=== PATIENT | female | born 1965 | race Caucasian/White ===

== ENCOUNTER 2016-04-15 12:20 | Emergency (ER) | payer OTHER ==
--- NOTE | 2016-04-15 14:49 | ED NURSING NOTES ---
Clinical Report - Nurses [facility] [address] [place] [address] 04/15/2016 12:20 Patient: MARY SCHMIDT TRIAGE Triage time 13:21. Acuity: LEVEL 3. Chief Complaint: TOOTHACHE. --13:28 Jarred Ramos R.N. 13:21 04/15/16. BP: 138/98. HR: 89. RR: 18. O2 saturation: 97%. Temp: 98.6 F. Pain level now 01/12. --13:28 Jarred Ramos R.N. Weight: 74.8 kg stated. Height/Length: 62 inches Per Patient. BMI: 30.2. --13:27 Jarred Ramos R.N. Medications Lisinopril Oral. --13:23 Jarred Ramos R.N. Allergies LIsinopril. --13:24 Jarred Ramos R.N. History Arrived by private vehicle. Historian: patient. Onset. (2 days ago). 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 SOCIAL HX: Smoker- current status unknown. No alcohol use or drug use. FALL RISK ASSESSMENT: Fall risk assessment completed. No fall risk identified. NUTRITIONAL RISK ASSESSMENT: The nutritional risk assessment revealed no deficiencies. FUNCTIONAL ASSESSMENT: Functional assessment: no impairments noted. LEARNING NEEDS ASSESSMENT: The learning needs assessment revealed no barriers. SKIN INTEGRITY ASSESSMENT: Skin integrity risk assessment completed. No skin integrity risk identified. --13:28 Jarred Ramos R.N. PROBLEMS: Sprain. Back Pain. Contusion. Tetanus Status. Dental Caries. Immunizations. Hypertension. Acute Pain. Dental Pain. Pharyngitis. LNMP - Last Normal Menstrual Period. --13:24 Jarred Ramos R.N. Interventions ID band on patient. Precautions initiated. --13:28 Jarred Ramos R.N. PHYSICAL ASSESSMENT GENERAL / NEURO / PSYCH: Alert. Oriented X 4. Appears in no acute distress. --13:28 Jarred Ramos R.N. NURSING PROGRESS NOTES ( Will be seen in triage). --13:28 Jarred Ramos R.N. DISPOSITION / DISCHARGE Condition at departure: unchanged. No learning barriers present. Discharge instructions provided and reviewed with the patient. Patient verbalized understanding. Written instructions provided in Barbadian. The patient was discharged by the physician community program assistant. She was discharged home. She left the Emergency Department ambulatory. --15:00 Jarred Ramos R.N. 14:58 04/15/16. BP: 128/93. HR: 91. RR: 20. O2 saturation: 98%. Temp: 98.6 F. Pain level now 01/12. --15:00 Jarred Ramos R.N. Locked/Released at 04/15/2016 15:01 by Jarred Ramos R.N.
--- NOTE | 2016-04-15 14:49 | ED CLINICAL REPORT ---
Clinical Report - Physicians/Mid Levels [facility] [address] [place] [address] 04/15/2016 12:20 Patient: MARY SCHMIDT Time Seen: 14:37; initial patient contact, initial documentation, patient care assumed. Arrived- By private vehicle. Historian- patient. HISTORY OF PRESENT ILLNESS Chief Complaint: DENTAL PAIN. This started about 2 days ago and is still present. No sore throat, mouth sores, nasal discharge or congestion or ear pain. No swollen jaw or face, jaw pain or facial pain. She has had toothache. (says tooth has hole in it for a while now, and she needs tooth pulled, but can't get into dentist for 2 mos). Similar symptoms previously: Chronically, milder. Recent medical care: Not recently seen/assessed. REVIEW OF SYSTEMS No fever or difficulty breathing. All systems otherwise negative, except as recorded above. PAST HISTORY See nurses notes. PROBLEMS: Sprain. Back Pain. Contusion. Tetanus Status. Dental Caries. Immunizations. Hypertension. Acute Pain. Dental Pain. Pharyngitis. LNMP - Last Normal Menstrual Period. --13:24 Jarred Ramos R.N. SOCIAL HISTORY Smoker - current status unknown. No alcohol use or drug use. No recent travel. Is a local resident. FAMILY HISTORY Negative. ADDITIONAL NOTES The nursing notes have been reviewed with agreement regarding the chief complaint, HPI, ROS, PMH and patient medications and allergies. PHYSICAL EXAM Vital Signs: 04/15/2016 13:21 BP: 138/98. HR: 89. RR: 18. O2 saturation: 97%. Temp: 98.6 F. Have been reviewed as abnormal and appear to be correct. Hypertensive. Heart rate normal. Respiratory rate normal. Temperature normal. Oxygen saturation normal. Appearance: Alert. No acute distress. Head: Normal external inspection. Eyes: Pupils equal, round and reactive to light. Conjunctivae and eyelids normal. ENT: Ears normal. Nose normal. Pharynx normal. Lips normal. Gums normal. No trismus present. Uvula midline. (no 'hole' in tooth is noted). Neck: Normal inspection. Trachea midline. No adenopathy. Thyroid normal. Neck supple. Respiratory: No respiratory distress. Skin: Normal skin color. No rash. Normal skin turgor. Extremities: Extremities exhibit normal ROM. Extremities nontender. Neuro: Oriented X 3. No motor deficit. No sensory deficit. PROGRESS AND PROCEDURES Patient counseled in person regarding the patient's stable condition and diagnosis. 14:49. Differential Diagnosis: Other possible considerations: dental pain, substance abuse, caries, abscess. Above considerations are based on history and physical exam. Differential diagnosis was discussed with patient. Disposition: Discharged home in good and improved condition. Condition: good and stable. CLINICAL IMPRESSION Moderate dental pain. INSTRUCTIONS Warnings: GENERAL WARNINGS: Return or contact your physician immediately if your condition worsens or changes unexpectedly, if not improving as expected, or if other problems arise. Specifically return if problem worsens. Prescription Medications: Penicillin V 500mg: take 1 tab orally every 6 hours for 10 days. Dispense forty (40). No refill Ultram 50 mg tablets: take 1-2 orally every 6 hours as needed for pain. Dispense twenty (20). No refills. Substitution is permissible. Follow-up: Follow up with a dentist in about three days even if well. Call for an appointment. Summary of care provided to patient. Screening today revealed the patient's blood pressure to be in the hypertensive range. The patient should follow up with a primary care provider for blood pressure management. Understanding of the discharge instructions verbalized by patient. (Electronically signed by Hemalatha Lind A.R.N.P. 04/15/2016 22:07)
--- NOTE | 2016-04-15 14:49 | ED NURSING NOTES ---
Clinical Report - Nurses [facility] [address] [place] [address] 04/15/2016 12:20 Patient: MARY SCHMIDT TRIAGE Triage time 13:21. Acuity: LEVEL 3. Chief Complaint: TOOTHACHE. --13:28 Jarred Ramos R.N. 13:21 04/15/16. BP: 138/98. HR: 89. RR: 18. O2 saturation: 97%. Temp: 98.6 F. Pain level now 01/12. --13:28 Jarred Ramos R.N. Weight: 74.8 kg stated. Height/Length: 62 inches Per Patient. BMI: 30.2. --13:27 Jarred Ramos R.N. Medications Lisinopril Oral. --13:23 Jarred Ramos R.N. Allergies LIsinopril. --13:24 Jarred Ramos R.N. History Arrived by private vehicle. Historian: patient. Onset. (2 days ago). 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 SOCIAL HX: Smoker- current status unknown. No alcohol use or drug use. FALL RISK ASSESSMENT: Fall risk assessment completed. No fall risk identified. NUTRITIONAL RISK ASSESSMENT: The nutritional risk assessment revealed no deficiencies. FUNCTIONAL ASSESSMENT: Functional assessment: no impairments noted. LEARNING NEEDS ASSESSMENT: The learning needs assessment revealed no barriers. SKIN INTEGRITY ASSESSMENT: Skin integrity risk assessment completed. No skin integrity risk identified. --13:28 Jarred Ramos R.N. PROBLEMS: Sprain. Back Pain. Contusion. Tetanus Status. Dental Caries. Immunizations. Hypertension. Acute Pain. Dental Pain. Pharyngitis. LNMP - Last Normal Menstrual Period. --13:24 Jarred Ramos R.N. Interventions ID band on patient. Precautions initiated. --13:28 Jarred Ramos R.N. PHYSICAL ASSESSMENT GENERAL / NEURO / PSYCH: Alert. Oriented X 4. Appears in no acute distress. --13:28 Jarred Ramos R.N. NURSING PROGRESS NOTES ( Will be seen in triage). --13:28 Jarred Ramos R.N. DISPOSITION / DISCHARGE Condition at departure: unchanged. No learning barriers present. Discharge instructions provided and reviewed with the patient. Patient verbalized understanding. Written instructions provided in Gabonese. The patient was discharged by the physician assistant kitchen manager. She was discharged home. She left the Emergency Department ambulatory. --15:00 Jarred Ramos R.N. 14:58 04/15/16. BP: 128/93. HR: 91. RR: 20. O2 saturation: 98%. Temp: 98.6 F. Pain level now 01/12. --15:00 Jarred Ramos R.N. Locked/Released at 04/15/2016 15:01 by Jarred Ramos R.N.
--- NOTE | 2016-04-15 22:08 | ED MAR SUMMARY ---
..... Medication Administration Record [facility] [address] [place], [place] [id number] Patient: MARY SCHMIDT Visit ID: [id number] 50y, F Weight: 74.8 kg Height/Length: 62 in BMI: 30.2 ALLERGIES: LIsinopril
--- NOTE | 2016-04-15 22:08 | ED DISCHARGE INSTRUCTIONS ---
Patient: MARY SCHMIDT General Instructions [facility] VisitID: [id number] [place] [address] 50y, F Registration Date/Time: 04/15/2016 Moderate dental pain. INSTRUCTIONS Warnings: GENERAL WARNINGS: Return or contact your physician immediately if your condition worsens or changes unexpectedly, if not improving as expected, or if other problems arise. Specifically return if problem worsens. Prescription Medications: Penicillin V 500mg: take 1 tab orally every 6 hours for 10 days. Dispense forty (40). No refill Ultram 50 mg tablets: take 1-2 orally every 6 hours as needed for pain. Dispense twenty (20). No refills. Substitution is permissible. Follow-up: Follow up with a dentist in about three days even if well. Call for an appointment. Summary of care provided to patient. Screening today revealed the patient's blood pressure to be in the hypertensive range. The patient should follow up with a primary care provider for blood pressure management. Understanding of the discharge instructions verbalized by patient. ADDITIONAL INFORMATION Dental Pain A crack or cavity in the tooth, which exposes the sensitive inner area of the tooth can cause tooth pain. An infection in the gum or the root of the tooth can cause pain and swelling. The pain is often made worse by drinking hot or cold fluids, or biting on hard foods. Pain may spread from the tooth to the ear or jaw on the same side. Home Care: Avoid hot and cold foods and liquids since your tooth may be sensitive to temperature changes. If your tooth is chipped or cracked, or if there is a large open cavity, apply OIL OF CLOVES (available [id number]-gcr-[id number] in drug stores) directly to the tooth to reduce pain. Some pharmacies carry an [id number] "toothache kit." This contains a paste, which can be applied over the exposed tooth to decrease sensitivity. A cold pack on your jaw over the sore area may help reduce pain. You may use acetaminophen (Tylenol) or ibuprofen (Motrin, Advil) to control pain, unless another medicine was prescribed. [ NOTE: If you have chronic liver or kidney disease or ever had a stomach ulcer or GI bleeding, talk with your doctor before using these medicines.] If you have signs of an infection, an antibiotic will be given. Take it as directed. Follow-Up as directed with a dentist. Your pain may go away with the treatment given. However, only a dentist can fully evaluate and treat the cause and prevent the pain from coming back again. TOOTHACHE IS A SIGN OF DISEASE IN YOUR TOOTH AND SHOULD BE EXAMINED AND TREATED BY A DENTIST. Get Prompt Medical Attention if any of the following occur: Your face becomes swollen or red Pain worsens or spreads to the neck Fever over 100.4 F (38.0 C) Unusual drowsiness; headache or stiff neck; weakness or fainting Pus drains from the tooth Difficulty swallowing or breathing Penicillin V Potassium Oral tablet What is this medicine? PENICILLIN V (pen i SILL in V) is a penicillin antibiotic. It is used to treat certain kinds of bacterial infections. It will not work for colds, flu, or other viral infections. How should I use this medicine? Take this medicine by mouth with a full glass of water. Follow the directions on the prescription label. Take your medicine at regular intervals. Do not take your medicine more often than directed. Take all of your medicine as directed even if you think your are better. Do not skip doses or stop your medicine early. Talk to your brick and blocker aid labor regarding the use of this medicine in children. While this drug may be prescribed for selected conditions, precautions do apply. What side effects may I notice from receiving this medicine? Side effects that you should report to your doctor or health child caregiver as soon as possible: allergic reactions like skin rash or hives, swelling of the face, lips, or tongue breathing problems fever new symptoms of infection redness, blistering, peeling or loosening of the skin, including inside the mouth unusually weak or tired Side effects that usually do not require medical attention (report to your doctor or health child caregiver if they continue or are bothersome): diarrhea headache nausea, vomiting sore mouth or tongue stomach upset What may interact with this medicine? control pills methotrexate other antibiotics probenecid some vaccines What if I miss a dose? If you miss a dose, take it as soon as you can. If it is almost time for your next dose, take only that dose. Do not take double or extra doses. Where should I keep my medicine? Keep out of the reach of children. Store at room temperature between 15 and 30 degrees C (59 and 86 degrees F). Keep container tightly closed. Throw away any unused medicine after the expiration date. What should I tell my health care provider before I take this medicine? They need to know if you have any of these conditions: asthma bowel disease, like colitis eczema kidney disease an unusual or allergic reaction to penicillin, cephalosporins, other antibiotics or medicines, foods, tartrazine or other dyes, or preservatives or trying to get breast-feeding What should I watch for while using this medicine? Tell your doctor or health child caregiver if your symptoms do not improve. Do not treat diarrhea with over the counter products. Contact your doctor if you have diarrhea that lasts more than 2 days or if it is severe and watery. If you have diabetes, you may get a false-positive result for sugar in your urine. Check with your doctor or health child caregiver. control pills may not work properly while you are taking this medicine. Talk to your doctor about using an extra method of control. Tramadol Hydrochloride Oral tablet What is this medicine? TRAMADOL (TRA ma dole) is a pain reliever. It is used to treat moderate to severe pain in adults. How should I use this medicine? Take this medicine by mouth with a full glass of water. Follow the directions on the prescription label. If the medicine upsets your stomach, take it with food or milk. Do not take more medicine than you are told to take. Talk to your brick and blocker aid labor regarding the use of this medicine in children. Special care may be needed. What side effects may I notice from receiving this medicine? Side effects that you should report to your doctor or health child caregiver as soon as possible: allergic reactions like skin rash, itching or hives, swelling of the face, lips, or tongue breathing difficulties, wheezing confusion itching light headedness or fainting spells redness, blistering, peeling or loosening of the skin, including inside the mouth seizures Side effects that usually do not require medical attention (report to your doctor or health child caregiver if they continue or are bothersome): constipation dizziness drowsiness headache nausea, vomiting What may interact with this medicine? Do not take this medicine with any of the following medications: MAOIs like Carbex, Eldepryl, Marplan, Nardil, and Parnate This medicine may also interact with the following medications: alcohol or medicines that contain alcohol antihistamines benzodiazepines bupropion carbamazepine or oxcarbazepine clozapine cyclobenzaprine digoxin furazolidone linezolid medicines for depression, anxiety, or psychotic disturbances medicines for migraine headache like almotriptan, eletriptan, frovatriptan, naratriptan, rizatriptan, sumatriptan, zolmitriptan medicines for pain like pentazocine, buprenorphine, butorphanol, meperidine, nalbuphine, and propoxyphene medicines for sleep muscle relaxants naltrexone phenobarbital phenothiazines like perphenazine, thioridazine, chlorpromazine, mesoridazine, fluphenazine, prochlorperazine, promazine, and trifluoperazine procarbazine warfarin What if I miss a dose? If you miss a dose, take it as soon as you can. If it is almost time for your next dose, take only that dose. Do not take double or extra doses. Where should I keep my medicine? Keep out of the reach of children. Store at room temperature between 15 and 30 degrees C (59 and 86 degrees F). Keep container tightly closed. Throw away any unused medicine after the expiration date. What should I tell my health care provider before I take this medicine? They need to know if you have any of these conditions: brain tumor depression drug abuse or addiction head injury if you frequently drink alcohol containing drinks kidney disease or trouble passing urine liver disease lung disease, asthma, or breathing problems seizures or epilepsy suicidal thoughts, plans, or attempt; a previous suicide attempt by you or a family member an unusual or allergic reaction to tramadol, codeine, other medicines, foods, dyes, or preservatives or trying to get breast-feeding What should I watch for while using this medicine? Tell your doctor or health child caregiver if your pain does not go away, if it gets worse, or if you have new or a different type of pain. You may develop tolerance to the medicine. Tolerance means that you will need a higher dose of the medicine for pain relief. Tolerance is normal and is expected if you take this medicine for a long time. Do not suddenly stop taking your medicine because you may develop a severe reaction. Your body becomes used to the medicine. This does NOT mean you are addicted. Addiction is a behavior related to getting and using a drug for a non-medical reason. If you have pain, you have a medical reason to take pain medicine. Your doctor will tell you how much medicine to take. If your doctor wants you to stop the medicine, the dose will be slowly lowered over time to avoid any side effects. You may get drowsy or dizzy. Do not drive, use machinery, or do anything that needs mental alertness until you know how this medicine affects you. Do not stand or sit up quickly, especially if you are an older patient. This reduces the risk of dizzy or fainting spells. Alcohol can increase or decrease the effects of this medicine. Avoid alcoholic drinks. You may have constipation. Try to have a bowel movement at least every 2 to 3 days. If you do not have a bowel movement for 3 days, call your doctor or health child caregiver. Your mouth may get dry. Chewing sugarless gum or sucking hard candy, and drinking plenty of water may help. Contact your doctor if the problem does not go away or is severe. You have been given the following additional information: Dental Pain Penicillin V Potassium Oral tablet Tramadol Hydrochloride Oral tablet (Electronically signed by Hemalatha Lind A.R.N.P. 04/15/2016 22:07)
--- NOTE | 2016-04-15 22:08 | ED DISCHARGE INSTRUCTIONS ---
Patient: MARY SCHMIDT General Instructions [facility] VisitID: [id number] [place] [address] 50y, F Registration Date/Time: 04/15/2016 Moderate dental pain. INSTRUCTIONS Warnings: GENERAL WARNINGS: Return or contact your physician immediately if your condition worsens or changes unexpectedly, if not improving as expected, or if other problems arise. Specifically return if problem worsens. Prescription Medications: Penicillin V 500mg: take 1 tab orally every 6 hours for 10 days. Dispense forty (40). No refill Ultram 50 mg tablets: take 1-2 orally every 6 hours as needed for pain. Dispense twenty (20). No refills. Substitution is permissible. Follow-up: Follow up with a dentist in about three days even if well. Call for an appointment. Summary of care provided to patient. Screening today revealed the patient's blood pressure to be in the hypertensive range. The patient should follow up with a primary care provider for blood pressure management. Understanding of the discharge instructions verbalized by patient. ADDITIONAL INFORMATION Dental Pain A crack or cavity in the tooth, which exposes the sensitive inner area of the tooth can cause tooth pain. An infection in the gum or the root of the tooth can cause pain and swelling. The pain is often made worse by drinking hot or cold fluids, or biting on hard foods. Pain may spread from the tooth to the ear or jaw on the same side. Home Care: Avoid hot and cold foods and liquids since your tooth may be sensitive to temperature changes. If your tooth is chipped or cracked, or if there is a large open cavity, apply OIL OF CLOVES (available [id number]-flbrhmq in drug stores) directly to the tooth to reduce pain. Some pharmacies carry an [id number] "toothache kit." This contains a paste, which can be applied over the exposed tooth to decrease sensitivity. A cold pack on your jaw over the sore area may help reduce pain. You may use acetaminophen (Tylenol) or ibuprofen (Motrin, Advil) to control pain, unless another medicine was prescribed. [ NOTE: If you have chronic liver or kidney disease or ever had a stomach ulcer or GI bleeding, talk with your doctor before using these medicines.] If you have signs of an infection, an antibiotic will be given. Take it as directed. Follow-Up as directed with a dentist. Your pain may go away with the treatment given. However, only a dentist can fully evaluate and treat the cause and prevent the pain from coming back again. TOOTHACHE IS A SIGN OF DISEASE IN YOUR TOOTH AND SHOULD BE EXAMINED AND TREATED BY A DENTIST. Get Prompt Medical Attention if any of the following occur: Your face becomes swollen or red Pain worsens or spreads to the neck Fever over 100.4 F (38.0 C) Unusual drowsiness; headache or stiff neck; weakness or fainting Pus drains from the tooth Difficulty swallowing or breathing Penicillin V Potassium Oral tablet What is this medicine? PENICILLIN V (pen i SILL in V) is a penicillin antibiotic. It is used to treat certain kinds of bacterial infections. It will not work for colds, flu, or other viral infections. How should I use this medicine? Take this medicine by mouth with a full glass of water. Follow the directions on the prescription label. Take your medicine at regular intervals. Do not take your medicine more often than directed. Take all of your medicine as directed even if you think your are better. Do not skip doses or stop your medicine early. Talk to your community coordinator regarding the use of this medicine in children. While this drug may be prescribed for selected conditions, precautions do apply. What side effects may I notice from receiving this medicine? Side effects that you should report to your doctor or health animal care provider as soon as possible: allergic reactions like skin rash or hives, swelling of the face, lips, or tongue breathing problems fever new symptoms of infection redness, blistering, peeling or loosening of the skin, including inside the mouth unusually weak or tired Side effects that usually do not require medical attention (report to your doctor or health animal care provider if they continue or are bothersome): diarrhea headache nausea, vomiting sore mouth or tongue stomach upset What may interact with this medicine? control pills methotrexate other antibiotics probenecid some vaccines What if I miss a dose? If you miss a dose, take it as soon as you can. If it is almost time for your next dose, take only that dose. Do not take double or extra doses. Where should I keep my medicine? Keep out of the reach of children. Store at room temperature between 15 and 30 degrees C (59 and 86 degrees F). Keep container tightly closed. Throw away any unused medicine after the expiration date. What should I tell my health care provider before I take this medicine? They need to know if you have any of these conditions: asthma bowel disease, like colitis eczema kidney disease an unusual or allergic reaction to penicillin, cephalosporins, other antibiotics or medicines, foods, tartrazine or other dyes, or preservatives or trying to get breast-feeding What should I watch for while using this medicine? Tell your doctor or health animal care provider if your symptoms do not improve. Do not treat diarrhea with over the counter products. Contact your doctor if you have diarrhea that lasts more than 2 days or if it is severe and watery. If you have diabetes, you may get a false-positive result for sugar in your urine. Check with your doctor or health animal care provider. control pills may not work properly while you are taking this medicine. Talk to your doctor about using an extra method of control. Tramadol Hydrochloride Oral tablet What is this medicine? TRAMADOL (TRA ma dole) is a pain reliever. It is used to treat moderate to severe pain in adults. How should I use this medicine? Take this medicine by mouth with a full glass of water. Follow the directions on the prescription label. If the medicine upsets your stomach, take it with food or milk. Do not take more medicine than you are told to take. Talk to your community coordinator regarding the use of this medicine in children. Special care may be needed. What side effects may I notice from receiving this medicine? Side effects that you should report to your doctor or health animal care provider as soon as possible: allergic reactions like skin rash, itching or hives, swelling of the face, lips, or tongue breathing difficulties, wheezing confusion itching light headedness or fainting spells redness, blistering, peeling or loosening of the skin, including inside the mouth seizures Side effects that usually do not require medical attention (report to your doctor or health animal care provider if they continue or are bothersome): constipation dizziness drowsiness headache nausea, vomiting What may interact with this medicine? Do not take this medicine with any of the following medications: MAOIs like Carbex, Eldepryl, Marplan, Nardil, and Parnate This medicine may also interact with the following medications: alcohol or medicines that contain alcohol antihistamines benzodiazepines bupropion carbamazepine or oxcarbazepine clozapine cyclobenzaprine digoxin furazolidone linezolid medicines for depression, anxiety, or psychotic disturbances medicines for migraine headache like almotriptan, eletriptan, frovatriptan, naratriptan, rizatriptan, sumatriptan, zolmitriptan medicines for pain like pentazocine, buprenorphine, butorphanol, meperidine, nalbuphine, and propoxyphene medicines for sleep muscle relaxants naltrexone phenobarbital phenothiazines like perphenazine, thioridazine, chlorpromazine, mesoridazine, fluphenazine, prochlorperazine, promazine, and trifluoperazine procarbazine warfarin What if I miss a dose? If you miss a dose, take it as soon as you can. If it is almost time for your next dose, take only that dose. Do not take double or extra doses. Where should I keep my medicine? Keep out of the reach of children. Store at room temperature between 15 and 30 degrees C (59 and 86 degrees F). Keep container tightly closed. Throw away any unused medicine after the expiration date. What should I tell my health care provider before I take this medicine? They need to know if you have any of these conditions: brain tumor depression drug abuse or addiction head injury if you frequently drink alcohol containing drinks kidney disease or trouble passing urine liver disease lung disease, asthma, or breathing problems seizures or epilepsy suicidal thoughts, plans, or attempt; a previous suicide attempt by you or a family member an unusual or allergic reaction to tramadol, codeine, other medicines, foods, dyes, or preservatives or trying to get breast-feeding What should I watch for while using this medicine? Tell your doctor or health animal care provider if your pain does not go away, if it gets worse, or if you have new or a different type of pain. You may develop tolerance to the medicine. Tolerance means that you will need a higher dose of the medicine for pain relief. Tolerance is normal and is expected if you take this medicine for a long time. Do not suddenly stop taking your medicine because you may develop a severe reaction. Your body becomes used to the medicine. This does NOT mean you are addicted. Addiction is a behavior related to getting and using a drug for a non-medical reason. If you have pain, you have a medical reason to take pain medicine. Your doctor will tell you how much medicine to take. If your doctor wants you to stop the medicine, the dose will be slowly lowered over time to avoid any side effects. You may get drowsy or dizzy. Do not drive, use machinery, or do anything that needs mental alertness until you know how this medicine affects you. Do not stand or sit up quickly, especially if you are an older patient. This reduces the risk of dizzy or fainting spells. Alcohol can increase or decrease the effects of this medicine. Avoid alcoholic drinks. You may have constipation. Try to have a bowel movement at least every 2 to 3 days. If you do not have a bowel movement for 3 days, call your doctor or health animal care provider. Your mouth may get dry. Chewing sugarless gum or sucking hard candy, and drinking plenty of water may help. Contact your doctor if the problem does not go away or is severe. You have been given the following additional information: Dental Pain Penicillin V Potassium Oral tablet Tramadol Hydrochloride Oral tablet (Electronically signed by Hemalatha Lind A.R.N.P. 04/15/2016 22:07)
--- NOTE | 2016-04-15 22:08 | ED MAR SUMMARY ---
..... Medication Administration Record [facility] [address] [place] [id number] Patient: MARY SCHMIDT Visit ID: [id number] 50y, F Weight: 74.8 kg Height/Length: 62 in BMI: 30.2 ALLERGIES: LIsinopril
--- NOTE | 2016-04-15 22:08 | ED MED RECONCILIATION SUMMARY ---
Patient: MARY SCHMIDT Medication Reconciliation Report [facility] VisitID: [id number] [address] [place] [address] 50y, F Registration Date/Time: 04/15/2016 Weight: 74.8 kg Height/Length: 62 in. BMI: 30.2 ALLERGIES: LIsinopril The patient's Home Medications are listed below: THE FOLLOWING MEDICATIONS NEED TO BE RECONCILED: Lisinopril Oral The source(s) of the original Home Medication information: Not obtained. The following Medications were given to the patient in the Emergency Department: None. The following Medications were prescribed to the patient: Penicillin V 500mg: take 1 tab orally every 6 hours for 10 days. Dispense forty (40). No refill -- Hemalatha Lind, Quita.R.N.P. Ultram 50 mg tablets: take 1-2 orally every 6 hours as needed for pain. Dispense twenty (20). No refills. Substitution is permissible. -- Hemalatha Lind A.R.N.P.
--- NOTE | 2016-04-15 22:08 | ED MED RECONCILIATION SUMMARY ---
Patient: MARY SCHMIDT Medication Reconciliation Report [facility] VisitID: [id number] [address] [place] [address] 50y, F Registration Date/Time: 04/15/2016 Weight: 74.8 kg Height/Length: 62 in. BMI: 30.2 ALLERGIES: LIsinopril The patient's Home Medications are listed below: THE FOLLOWING MEDICATIONS NEED TO BE RECONCILED: Lisinopril Oral The source(s) of the original Home Medication information: Not obtained. The following Medications were given to the patient in the Emergency Department: None. The following Medications were prescribed to the patient: Penicillin V 500mg: take 1 tab orally every 6 hours for 10 days. Dispense forty (40). No refill -- Hemalatha Lind, Quita.R.N.P. Ultram 50 mg tablets: take 1-2 orally every 6 hours as needed for pain. Dispense twenty (20). No refills. Substitution is permissible. -- Hemalatha Lind A.R.N.P.
== END 2016-04-15 15:05 | disposition home or self-care (01) ==
LOC: ED SRH 12:20
DX: K08.89 Other specified disorders of teeth and supporting structures (principal); I10 Essential (primary) hypertension; Z79.899 Other long term (current) drug therapy; Z88.8 Allergy status to other drugs, medicaments and biological substances

== ENCOUNTER 2016-05-29 20:53 | Emergency (ER) | payer OTHER ==
--- NOTE | 2016-05-29 23:05 | DIAGNOSTIC IMAGING REPORT ---
PROCEDURE: CT ABD/PELVIS WITH CONTRAST CLINICAL INDICATION: Upper abdominal pain, initial encounter TECHNIQUE: 125 ml of Isovue 300 were injected intravenously and axial images were obtained of the entire abdomen and pelvis with sagittal and coronal reformations. COMPARISON: None. FINDINGS: ABDOMEN: Lung bases are clear. Heart size is normal. Patchy enhancement of the right kidney with mild perinephric edema. Normal left kidney, adrenal glands, liver, gallbladder, pancreas and spleen. Mild atherosclerosis of the aorta. Large amount of residual stool with some distention of the cecum. Small hiatal hernia. PELVIS: Normal appendix. The uterus, adnexa and bladder are normal. No free fluid. No suspicious osseous lesions. IMPRESSION: 1. Patchy right renal enhancement suggestive of pyelonephritis 2. Obstipation 3. Small hiatal hernia 4. Results discussed with Dr. Olson All CT scans at this facility use dose modulation, iterative reconstruction, and/or weight-based dosing when appropriate to reduce radiation dose to as low as reasonably achievable.
--- NOTE | 2016-05-29 23:48 | ED ORDER SUMMARY ---
..... Patient: MARY SCHMIDT OrderSheet Merged With [facility] VisitID: [id number] [place] [address] 50y, F Registration Date/Time: 05/29/2016 ORDER SHEET Weight: 68.0 kg (estimated) Allergies: No Known Drug Allergy GENERAL ORDERS: CBC w Diff Urgent (21:05/29/2016 Yaa Rosa) (Ack 21:29 IJurca ER Tech1) (23:49 EInderbitzen R.N.) CMP Urgent (21:05/29/2016 Yaa Rosa) (Ack 21:29 IJurca ER Tech1) (23:49 EInderbitzen R.N.) UA-Culture if indicated Urgent (21:05/29/2016 Yaa Rosa) (Ack 21:29 IJurca ER Tech1) (23:49 EInderbitzen R.N.) Urine Urgent (21:05/29/2016 Yaa Rosa) (Ack 21:29 IJurca ER Tech1) (23:49 EInderbitzen R.N.) Amylase Urgent (21:05/29/2016 Yaa Rosa) (Ack 21:29 IJurca ER Tech1) (23:49 EInderbitzen R.N.) Lipase Urgent (21:05/29/2016 Yaa Rosa) (Ack 21:29 IJurca ER Tech1) (23:49 EInderbitzen R.N.) CT Abd/Pel w Cont (No) (11/0.9) Urgent (22:14 05/29/2016 Yaa Rosa) (Ack 22:15 IJurca ER Tech1) (23:37 GUnger) MEDICATION ORDERS: IV FLUIDS: IV NS : initial bolus none -, then 1000 mL/hr for X1 (NOW) (:05/29/2016 Yaa Rosa) (21:46 SIDNEYnebel R.N.) Toradol IV 30 mg (NOW) (21:05/29/2016 Yaa Rosa) (21:47 KKnebel R.N.) Zofran IV 4 mg (NOW) (21:27 05/29/2016 Yaa Rosa) (21:47 SIDNEYnereji R.N.) Morphine IV 4 mg (HIGH ALERT MEDICATION, NOW) (23:39 05/29/2016 Yaa Rosa) (23:47 EIstuarterariella R.N.) Ceftriaxone IV 1 gm/50mL (NOW) (23:39 05/29/2016 Yaa Rosa) (23:49 Barbie R.N.) ORDER SHEET NOTES: [Electronically signed by Tho Olson Dr. (23:50 05/29/2016)] [Electronically signed by Rose Lynn (00:34 05/30/2016)] [Electronically locked/signed by Rose Lynn (00:34 05/30/2016)]
--- NOTE | 2016-05-29 23:48 | ED NURSING NOTES ---
Clinical Report - Nurses [facility] [address] [place] [address] 05/29/2016 20:53 Patient: MARY SCHMIDT TRIAGE Triage time 21:May 29 2016. Acuity: LEVEL 3. Chief Complaint: ABDOMINAL PAIN. Alert. No acute distress. --21:16 Che Mendoza R.N. 21:02 05/29/16. BP: 138/86. HR: 102. RR: 22. O2 saturation: 100%. Temp: 100.9 F. Pain level now: 10/10. Pain level upon arrival: 10/10. Pain level at maximum: 10/10. Describes the quality as dull and sharp. No radiation noted. --21:16 Che Mendoza R.N. Weight: 68 kg estimated. Height/Length: 65 inches Estimated. BMI: 25. --00:33 Rose Lynn. Medications Zoloft Oral (Tablet 100 mg) 1 tablet, daily. --21:09 Che Mendoza R.N. Unknown blood pressure medication. --21:11 Che Mendoza R.N. Allergies No Known Drug Allergy. --21:11 Che Mendoza R.N. History Arrived by private vehicle. Historian: family. Accompanied by friend. This started yesterday. ( patient reports that she had upset stomach yesterday and then she started having pain today about 3pm). She has had nausea and abdominal pain. No vomiting or diarrhea. Last oral intake by patient was (1500 May 29 2016). 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 PAST MEDICAL HX: No history of diabetes mellitus. No history of peptic ulcer disease or gallstones. Immunizations: up-to-date. The patient is post-menopausal. SOCIAL HX: Former smoker, end date 04/2016. No alcohol use or drug use. No infectious disease exposure. FALL RISK ASSESSMENT: Fall risk assessment completed. No fall risk identified. NUTRITIONAL RISK ASSESSMENT: The nutritional risk assessment revealed no deficiencies. FUNCTIONAL ASSESSMENT: Functional assessment: no impairments noted. LEARNING NEEDS ASSESSMENT: The learning needs assessment revealed no barriers. SKIN INTEGRITY ASSESSMENT: Skin integrity risk assessment completed. No skin integrity risk identified. --21:16 Che Mendoza R.N. PROBLEMS: Depression. Sprain. Back Pain. Contusion. Tetanus Status. Dental Caries. Immunizations. Hypertension. Acute Pain. Dental Pain. Pharyngitis. LNMP - Last Normal Menstrual Period. --21:12 Che Mendoza R.N. ADDITIONAL SURGERIES: Tubal Ligation. --21:12 Che Mendoza R.N. Interventions ID band on patient. To room. --21:16 Che Mendoza R.N. PHYSICAL ASSESSMENT GENERAL / NEURO / PSYCH: Alert. Oriented X 4. Appears in no acute distress. RESPIRATORY: Respirations not labored. CVS: Capillary refill less than 2 seconds. GI / : The patient has had nausea. Abdominal tenderness in the left lower quadrant. Guarding and rebound tenderness present. SKIN: Skin is warm and dry. --21:18 Che Mendoza R.N. NURSING PROGRESS NOTES Pulse oximeter and NIBP monitor placed on patient; monitor alarms on. Patient gowned. Head of bed elevated. Two patient identifiers checked. Call light placed in reach. Side rails up x 1. Bed placed in lowest position. Brakes of bed on. Patient ready for evaluation- chart flagged. --21:18 Che Mendoza R.N. 21:29 05/29/2016 Site #1 started via IV in the left antecubital space with an 20g angiocath; one attempt. Blood drawn: rainbow set. Labeled in the presence of the patient and sent to the lab. Saline lock flushed with 10 mL saline. --21:34 Che Mendoza R.N. 21:41 05/29/2016 Started bag #1 1000 mL IV Fluids IV NS (Saline); bolus of 1000 mL over 1 hour(s) via site #1. IV patency established site checked: no pain, redness, or swelling. --21:46 Che Mendoza R.N. 21:42 05/29/2016 Toradol IVP 30 mg given. via site #1. IV patency established site checked: no pain, redness, or swelling flushed thoroughly pre- and post-medication administration. --21:47 Che Mendoza R.N. 21:42 05/29/2016 Zofran (Ondansetron HCl) IVP 4 mg given. via site #1. Allergies verified and confirmed 5 rights. IV patency established site checked: no pain, redness, or swelling flushed thoroughly pre- and post-medication administration. --21:47 Che Mendoza R.N. Patient ID band checked for patient name and birthdate: patient confirmed. Clean catch urine collected with return of adi-colored cloudy urine; sample sent to lab for urinalysis and culture. Specimen labeled in the presence of the patient. --21:50 Che Mendoza R.N. 22:10 05/29/16. Pain level now: 4/10. Additional comments: patient states that pain is a little better. --22:11 Che Mendoza R.N. 23:40 05/29/2016 IV Fluids IV NS Discontinued: bag #1. Total amount infused: 1000 mL. IV patency established. IV site checked: no pain, redness, or swelling. IV flushed thoroughly. --23:48 Brook Newman R.N. 23:45 05/29/2016 Morphine IVP 4 mg given over 1 minute(s) via site #1. Allergies verified, confirmed 5 rights and sedative warning given to the patient. IV patency established. IV site checked: no pain, redness, or swelling. IV flushed thoroughly pre- and post-medication administration. IVP given by RN. --23:47 Brook Newman R.N. 23:49 05/29/2016 Started 1 gm of Ceftriaxone IVPB in bag #1 50 mL; at 150 mL/hr over 20 minute(s) via site #1 via IV pump. Allergies verified and confirmed 5 rights. IV patency established. IV site checked: no pain, redness, or swelling. IV flushed thoroughly pre- and post-medication administration. --23:49 Brook Newman R.N. 00:08 05/30/2016 Ceftriaxone IVPB Discontinued: bag #1 completed upon discharge. Total amount infused: 50 mL. IV patency established. IV site checked: no pain, redness, or swelling. IV flushed thoroughly. --00:12 Rose Lynn. DISPOSITION / DISCHARGE 00:09 05/30/16. BP: 129/78. HR: 95. RR: 20. O2 saturation: 93% on room air. Temp: 99.2 F (oral). Pain level now: 09/12. --00:11 Rose Lynn 00:06 05/30/2016 Site #1 removed upon discharge. Catheter intact. Bandaid applied. --00:11 Rose Lynn 00:11 05/30/16. Condition at departure: stable. The goals identified in the patient's plan of care were met. No learning barriers present. Discharge instructions provided and reviewed with the patient and family. Reviewed warnings (Do not drive while taking narcotic medications). Reviewed medication(s) side effects, precautions, dosing and course information. Prescription(s) given to the patient. Reviewed fever care instructions. Reviewed need for increased fluid intake. Patient verbalized understanding. Written instructions provided in Serbian. ( Follow up with PCP in three days. Reviewed symptoms of allergic reaction with patient.). The patient was discharged by the physician. She was discharged home and accompanied by family. She left the Emergency Department ambulatory and via private vehicle. Family member driving. ( Provider aware of vitals, patient clear for discharge). FALL RISK ASSESSMENT: Fall risk assessment completed. No fall risk identified. --00:11 Rose Lynn. Locked/Released at 05/30/2016 0:34 by Rose Lynn,
--- NOTE | 2016-05-29 23:48 | ED CLINICAL REPORT ---
Clinical Report - Physicians/Mid Levels [facility] [address] [place] [address] 05/29/2016 20:53 Patient: MARY SCHMIDT Time Seen: 21:03; initial patient contact. Arrived- By private vehicle. Historian- patient. HISTORY OF PRESENT ILLNESS Chief Complaint: ABDOMINAL PAIN. At its maximum, severity described as moderate. When seen in the E.D., severity described as moderate. Modifying factors. Not worsened by anything. Not relieved by anything. It is described as sharp. No radiation. It is described as located in the right lower quadrant and in the suprapubic area. This started yesterday and is still present. It was gradual in onset and has been constant. The patient has had nausea and loss of appetite. No vomiting or diarrhea. Similar symptoms previously: None. Recent medical care: Not recently seen/assessed. REVIEW OF SYSTEMS No constipation, difficulty with urination, pain with urination, fever or chills. The patient has had urinary frequency. She has had a headache. All systems otherwise negative, except as recorded above. PAST HISTORY Sprain. Back Pain. Contusion. Tetanus Status. Dental Caries. Immunizations. Hypertension. Acute Pain. Dental Pain. Pharyngitis. SOCIAL HISTORY Former smoker. No alcohol use or drug use. ADDITIONAL NOTES The nursing notes have been reviewed with agreement regarding the chief complaint, PMH and patient medications and allergies. PHYSICAL EXAM Vital Signs: 05/29/2016 21:02 BP: 138/86. HR: 102. RR: 22. O2 saturation: 100%. Temp: 100.9 F. Pain level now: 10/10. Have been reviewed. Blood pressure normal. Tachycardic. Tachypneic. Febrile. Oxygen saturation normal. Appearance: Alert. Oriented X3. Appears to be in pain. Eyes: Eyes normal inspection. No scleral icterus. ENT: Dry mucous membranes present. CVS: Normal heart rate and rhythm. Heart sounds normal. Respiratory: No respiratory distress. Breath sounds normal. Abdomen: Soft. Moderate tenderness in the right lower quadrant with guarding present. Positive obturator and psoas sign. No rebound tenderness or Flores's sign present. Bowel sounds normal. No mass. Back: Normal inspection. No CVA tenderness. Skin: Normal skin color. No rash. Extremities: No lower extremity edema. Neuro: Oriented X 3. LABS, X-RAYS, AND EKG Abdominal CT: 1. Patchy right renal enhancement suggestive of pyelonephritis 2. Obstipation 3. Small hiatal hernia. Study type: abdomen and pelvis. Abdominal CT performed with IV contrast. The study was independently viewed by me, interpreted by the radiologist and discussed with the radiologist. Prior studies were not available for comparison. Interpretation time: 23:31. Laboratory Tests: UA-Culture if indicated: (KEEGAN: 05/29/2016 21:30) ( [facility] 21[facility]50[facility] Final results Test Result Flag Units (Reference) URINE COLOR YELLOW URINE APPEARANCE SL CLOUDY URINE GLUCOSE NEGATIVE (NEGATIVE) URINE BILIRUBIN NEGATIVE (NEGATIVE) URINE KETONE NEGATIVE (NEGATIVE) URINE SPECIFIC GRAVITY 1.020 (1.010-1.030) URINE PH 5.5 (5.0-8.0) URINE PROTEIN 1+ (NEGATIVE) URINE UROBILINOGEN 0.2 EU/dL (0.2-1.0) URINE NITRITE POSITIVE (NEGATIVE) URINE BLOOD 2+ (NEGATIVE) URINE LEUK ESTERASE POSITIVE (NEGATIVE) URINE RBC NONE SEEN rbc/hpf (0-1) URINE WBC >100 wbc/hpf (0-1) URINE EPITHELIAL CELLS 1-3 EPI/hpf (0-5) URINE BACTERIA MODERATE (2+ TO 3+) (NONE SEEN) URINE COMMENT CULTURE INDICATED URINE CULTURES ARE SET-UP BASED ON THE FOLLOWING CRITERIA:POSITIVE NITRITEPOSITIVE LEUKOCYTE ESTERASEGREATER THAN 10 WHITE BLOOD CELLSMODERATE (2+) OR GREATER BACTERIA Urine: (KEEGAN: 05/29/2016 21:30) ( MsgRcvd 05/29/2016 21:43) Final results Test Result Flag Units (Reference) URINE NEGATIVE CBC w Diff: (KEEGAN: 05/29/2016 21:30) ( MsgRcvd 05/29/2016 21:41) Final results Test Result Flag Units (Reference) WHITE BLOOD COUNT 14.7 H K/uL (4.5-11.5) RED BLOOD COUNT 4.36 M/uL (4.00-5.20) HEMOGLOBIN 13.1 gm/dL (12.0-16.0) HEMATOCRIT 38.4 % (36.0-46.0) MEAN CELL VOLUME 88 fL (80-100) MEAN CORPUSCULAR HGB 30 pg (26-34) MEAN CORPUSCULAR HGB CONC 34 g/dL (31-37) RED CELL DISTRIBUTION WIDTH 12.5 % (11.6-14.8) PLATELET COUNT 399 K/uL (150-400) NEUTROPHIL % 79.4 H % (50-75) LYMPH % 8.7 L % (25-40) MONO % 10.2 % (3-14) EOSINOPHIL % 1.0 % (0-4) BASOPHIL % 0.7 % (0-2) CMP: (KEEGAN: 05/29/2016 21:30) ( MsgRcvd 05/29/2016 21:58) Final results Test Result Flag Units (Reference) GLUCOSE 99 mg/dL (70-110) BUN 11 mg/dL (7-18) CREATININE 0.9 mg/dL (0.6-1.3) Estimated GFR >60 mL/min Estimated GFR- >60 mL/min Note: Persistent reduction over 3 months in eGFR<60 mL/min/1.73 m2 defines CKD. Patients with eGFR values>=60 mL/min/1.73 m2 may also have CKD if evidence ofpersistent proteinuria. Additional information may be foundat www.kidney.org. SODIUM 139 mmol/L (136-145) POTASSIUM 3.9 mmol/L (3.5-5.1) CHLORIDE 101 mmol/L (98-107) CARBON DIOXIDE 27 mmol/L (21-32) CALCIUM 9.3 mg/dL (8.5-10.1) TOTAL PROTEIN 7.1 g/dL (6.4-8.2) ALBUMIN 3.2 L g/dL (3.3-5.0) BILIRUBIN, TOTAL 0.3 mg/dL (0.0-1.0) ALKALINE PHOSPHATASE 80 U/L (46-116) AST (SGOT) 22 U/L (15-37) ALT (SGPT) 19 U/L (12-78) LIPASE 68 L U/L (73-393) AMYLASE 28 U/L (25-115) . PROGRESS AND PROCEDURES Disposition: Discharged home in good and improved condition. Condition: good. CLINICAL IMPRESSION Acute pyelonephritis INSTRUCTIONS Alternate Tylenol (Acetaminophen) or Motrin (Ibuprofen) for fever. Take according to label instructions. Your Current Medications: CONTINUE TAKING THE FOLLOWING MEDICATIONS: Unknown blood pressure medication*. Zoloft Oral : Tablet 100 mg, 1 tablet daily. Prescription Medications: Hydrocodone/APAP 5mg / 325mg: take 1 orally every 6 hours as needed for pain. Dispense fifteen (15). No refill. Zofran (orally disintegrating tablets) 4 mg: take 1 orally every 6 hours as needed for nausea and vomiting. Dispense ten (10). Substitution is permissible. Suprax 400 mg: take 1 tab orally every day for 10 days. No refills. Substitution is permissible. Follow-up: Follow up with your doctor in about three days. Call for an appointment. Screening today revealed the patient's blood pressure to be in the pre-hypertensive range. The patient should follow up with a primary care provider for blood pressure management. (Electronically signed by Tho Olson Dr. 05/29/2016 23:50)
--- NOTE | 2016-05-29 23:48 | ED ORDER SUMMARY ---
..... Patient: MARY SCHMIDT OrderSheet [facility] VisitID: [id number] [place] [address] 50y, F Registration Date/Time: 05/29/2016 ORDER SHEET Weight: 68.0 kg (estimated) Allergies: No Known Drug Allergy GENERAL ORDERS: CBC w Diff Urgent (21:05/29/2016 Yaa Rosa) (Ack 21:29 IJurca ER Tech1) (23:49 EInderbitzen R.N.) CMP Urgent (21:05/29/2016 Yaa Rosa) (Ack 21:29 IJurca ER Tech1) (23:49 EInderbitzen R.N.) UA-Culture if indicated Urgent (21:05/29/2016 Yaa Rosa) (Ack 21:29 IJurca ER Tech1) (23:49 EInderbitzen R.N.) Urine Urgent (21:05/29/2016 Yaa Rosa) (Ack 21:29 IJurca ER Tech1) (23:49 EInderbitzen R.N.) Amylase Urgent (21:05/29/2016 Yaa Rosa) (Ack 21:29 IJurca ER Tech1) (23:49 EInderbitzen R.N.) Lipase Urgent (21:05/29/2016 Yaa Rosa) (Ack 21:29 IJurca ER Tech1) (23:49 EInderbitzen R.N.) CT Abd/Pel w Cont (No) (11/0.9) Urgent (22:14 05/29/2016 Yaa Rosa) (Ack 22:15 IJurca ER Tech1) (23:37 GUnger) MEDICATION ORDERS: IV FLUIDS: IV NS : initial bolus none -, then 1000 mL/hr for X1 (NOW) (:05/29/2016 Yaa Rosa) (21:46 SIDNEYnebel R.N.) Toradol IV 30 mg (NOW) (21:05/29/2016 Yaa Rosa) (21:47 KKnebel R.N.) Zofran IV 4 mg (NOW) (21:27 05/29/2016 Yaa Rosa) (21:47 SIDNEYnereji R.N.) Morphine IV 4 mg (HIGH ALERT MEDICATION, NOW) (23:39 05/29/2016 Yaa Rosa) (23:47 EIstuarterariella R.N.) Ceftriaxone IV 1 gm/50mL (NOW) (23:39 05/29/2016 Yaa Rosa) (23:49 Barbie R.N.) ORDER SHEET NOTES: [Electronically signed by Tho Olson Dr. (23:50 05/29/2016)] [Electronically signed by Rose Lynn (00:34 05/30/2016)] [Electronically locked/signed by Rose Lynn (00:34 05/30/2016)]
--- NOTE | 2016-05-30 00:35 | ED MAR SUMMARY ---
..... Medication Administration Record [facility] [address] [place] [address] Patient: MARY SCHMIDT Visit ID: [id number] 50y, F Weight: 68.0 kg Height/Length: 65 in BMI: 25 ALLERGIES: No Known Drug Allergy Start 21:41 05/29/2016 Che Mendoza R.N., Stop 23:40 05/29/2016 Brook Newman R.N. Medication Administered: IV NS (SALINE), Dose: IV Fluids, Bolus: 1000 mL over 1 hour(s), Dispensed: 1000 mL bag, Site: #1 left AC. Medication Ordered: IV NS : initial bolus none -, then 1000 mL/hr for X1 (NOW). Given 21:42 05/29/2016 Che Mendoza R.N. Medication Administered: TORADOL [IVP], Dose: 30 mg IVP, Site: #1 left AC. Medication Ordered: Toradol IV 30 mg (NOW). Given 21:42 05/29/2016 Che Mendoza R.N. Medication Administered: ZOFRAN [IVP] (ONDANSETRON HCL), Dose: 4 mg IVP, Site: #1 left AC. Medication Ordered: Zofran IV 4 mg (NOW). Given 23:45 05/29/2016 Brook Newman R.N. Medication Administered: MORPHINE [IVP], Dose: 4 mg IVP over 1 minute(s), Site: #1 left AC. Medication Ordered: Morphine IV 4 mg (HIGH ALERT MEDICATION, NOW). Start 23:49 05/29/2016 Borok Newman R.N., Stop 00:08 05/30/2016 Rose Lynn, Medication Administered: CEFTRIAXONE [IVPB], Dose: 1 gm IVPB over 20 minute(s), Rate: 150 mL/hr, Dispensed: 50 mL bag, Site: #1 left AC. Medication Ordered: Ceftriaxone IV 1 gm/50mL (NOW).
--- NOTE | 2016-05-30 00:35 | ED DISCHARGE INSTRUCTIONS ---
Patient: MARY SCHMIDT General Instructions [facility] VisitID: [id number] [place] [address] 50y, F Registration Date/Time: 05/29/2016 Acute pyelonephritis INSTRUCTIONS Alternate Tylenol (Acetaminophen) or Motrin (Ibuprofen) for fever. Take according to label instructions. Your Current Medications: CONTINUE TAKING THE FOLLOWING MEDICATIONS: Unknown blood pressure medication*. Zoloft Oral : Tablet 100 mg, 1 tablet daily. Prescription Medications: Hydrocodone/APAP 5mg / 325mg: take 1 orally every 6 hours as needed for pain. Dispense fifteen (15). No refill. Zofran (orally disintegrating tablets) 4 mg: take 1 orally every 6 hours as needed for nausea and vomiting. Dispense ten (10). Substitution is permissible. Suprax 400 mg: take 1 tab orally every day for 10 days. No refills. Substitution is permissible. Follow-up: Follow up with your doctor in about three days. Call for an appointment. Screening today revealed the patient's blood pressure to be in the pre-hypertensive range. The patient should follow up with a primary care provider for blood pressure management. ADDITIONAL INFORMATION Kidney Infection [Adult, Female] An infection of the kidney is also called "pyelonephritis". It usually starts as a bladder infection ("cystitis") which spreads to the kidneys. Pyelonephritis is more serious than a bladder infection. It can cause severe illness if not treated properly. The usual symptoms include an aching pain in the back, side or lower abdomen. Other symptoms may include fever, chills, nausea, vomiting, an urge to urinate and a burning sensation when passing urine. Home Care: Stay home from work or school. Rest in bed until your fever breaks and you are feeling better. Drink lots of fluid (at least 6-8 glasses a day, unless you must restrict fluids for other medical reasons). This will force the medicine into your urinary system and flush the bacteria out of your body. Avoid sexual intercourse until you have finished all of your medicine and your symptoms have gone away. Avoid caffeine, alcohol and spicy foods which may irritate the kidney and bladder. You may use acetaminophen (Tylenol) or ibuprofen (Motrin, Advil) to control pain, unless another pain medicine was prescribed. [NOTE: If you have chronic liver or kidney disease or ever had a stomach ulcer or GI bleeding, talk with your doctor before using these medicines.] Follow Up with your doctor or as advised by our staff for a repeat urine test in 10 days. This will ensure that your infection is fully cleared. [NOTE: If you had an X-ray or CT scan, it will be reviewed by a specialist. You will be notified of any new findings that may affect your care.] Get Prompt Medical Attention if any of the following occur: Fever over 100.4F (38.0C) after 48 hours of treatment No improvement by the third day of treatment Increasing back or abdominal pain Repeated vomiting or inability to take oral medicine Weakness, dizziness or fainting Fever Control (Adult) A fever is a natural reaction of the body to an illness. In most cases, the temperature itself is not harmful. It actually helps the body fight infections. A fever does not need to be treated unless you feel very uncomfortable. Home Care If you feel warm, check your temperature. If you feel very uncomfortable and your temperature is at or higher than 100.4F (38C) oral, you may take acetaminophen (Tylenol) every 4 to 6 hours. If you cant take or keep down oral medicine, ask your pharmacist for Tylenol suppositories, which you can get without a prescription. If the fever does not respond to acetaminophen within 1 hour, take ibuprofen (Advil or Motrin). If this works, keep taking the ibuprofen every 6 to 8 hours. Note: If you have chronic liver or kidney disease or ever had a stomach ulcer or GI bleeding, talk with your doctor before using these medications. If either medication alone does not keep the fever down, you may alternate the two medicines every 3 to 4 hours, only if your healthcare provider has instructed you to do so. For example, take Motrin then wait 3 hours, take Tylenol then wait 3 hours, take Motrin, and so on. Follow your healthcare providers instructions exactly. Clothing: Keep clothing light because excess body heat is lost through the skin. The fever will go up if you wear extra layers or wrap in blankets. Fluids: Fever causes the body to lose water through evaporation. Drink plenty of fluids such as water, juice, clear sodas, williams mildred, or lemonade. Do not use aspirin in anyone under 18 years of age who is ill with a fever. It can cause severe liver damage. Follow Up with your doctor or as advised by our staff if you do not get better after 48 hours. Get Prompt Medical Attention if any of the following occur: Fever does not get better after taking fever medication Fast or difficult breathing Earache, sinus pain, stiff or painful neck, headache, repeated diarrhea or vomiting You feel unusually irritable, drowsy, or confused A rash appears You feel weak or dizzy, or that you might faint Hydrocodone Bitartrate, Acetaminophen Oral tablet What is this medicine? ACETAMINOPHEN; HYDROCODONE (a set a MECHE hector fen; tomi droe KOE done) is a pain reliever. It is used to treat mild to moderate pain. How should I use this medicine? Take this medicine by mouth. Swallow it with a full glass of water. Follow the directions on the prescription label. If the medicine upsets your stomach, take the medicine with food or milk. Do not take more than you are told to take. Talk to your toll line repairer regarding the use of this medicine in children. This medicine is not approved for use in children. What side effects may I notice from receiving this medicine? Side effects that you should report to your doctor or health family day care worker as soon as possible: allergic reactions like skin rash, itching or hives, swelling of the face, lips, or tongue breathing problems confusion feeling faint or lightheaded, falls stomach pain yellowing of the eyes or skin Side effects that usually do not require medical attention (report to your doctor or health family day care worker if they continue or are bothersome): nausea, vomiting stomach upset What may interact with this medicine? alcohol antihistamines isoniazid medicines for depression, anxiety, or psychotic disturbances medicines for sleep muscle relaxants naltrexone narcotic medicines (opiates) for pain phenobarbital ritonavir tramadol What if I miss a dose? If you miss a dose, take it as soon as you can. If it is almost time for your next dose, take only that dose. Do not take double or extra doses. Where should I keep my medicine? Keep out of the reach of children. This medicine can be abused. Keep your medicine in a safe place to protect it from theft. Do not share this medicine with anyone. Selling or giving away this medicine is dangerous and against the law. Store at room temperature between 15 and 30 degrees C (59 and 86 degrees F). Protect from light. Keep container tightly closed. Throw away any unused medicine after the expiration date. Discard unused medicine and used packaging carefully. Pets and children can be harmed if they find used or lost packages. What should I tell my health care provider before I take this medicine? They need to know if you have any of these conditions: brain tumor Crohn's disease, inflammatory bowel disease, or ulcerative colitis drink more than 3 alcohol-containing drinks per day drug abuse or addiction head injury heart or circulation problems kidney disease or problems going to the bathroom liver disease lung disease, asthma, or breathing problems an unusual or allergic reaction to acetaminophen, hydrocodone, other opioid analgesics, other medicines, foods, dyes, or preservatives or trying to get breast-feeding What should I watch for while using this medicine? Tell your doctor or health family day care worker if your pain does not go away, if it gets worse, or if you have new or a different type of pain. You may develop tolerance to the medicine. Tolerance means that you will need a higher dose of the medicine for pain relief. Tolerance is normal and is expected if you take the medicine for a long time. Do not suddenly stop taking your medicine because you may develop a severe reaction. Your body becomes used to the medicine. This does NOT mean you are addicted. Addiction is a behavior related to getting and using a drug for a non-medical reason. If you have pain, you have a medical reason to take pain medicine. Your doctor will tell you how much medicine to take. If your doctor wants you to stop the medicine, the dose will be slowly lowered over time to avoid any side effects. You may get drowsy or dizzy when you first start taking the medicine or change doses. Do not drive, use machinery, or do anything that may be dangerous until you know how the medicine affects you. Stand or sit up slowly. There are different types of narcotic medicines (opiates) for pain. If you take more than one type at the same time, you may have more side effects. Give your health care provider a list of all medicines you use. Your doctor will tell you how much medicine to take. Do not take more medicine than directed. Call emergency for help if you have problems breathing. The medicine will cause constipation. Try to have a bowel movement at least every 2 to 3 days. If you do not have a bowel movement for 3 days, call your doctor or health family day care worker. Too much acetaminophen can be very dangerous. Do not take Tylenol (acetaminophen) or medicines that contain acetaminophen with this medicine. Many non-prescription medicines contain acetaminophen. Always read the labels carefully. Ondansetron Oral disintegrating tablet What is this medicine? ONDANSETRON (on LUCIUS se steven) is used to treat nausea and vomiting caused by chemotherapy. It is also used to prevent or treat nausea and vomiting after surgery. How should I use this medicine? These tablets are made to dissolve in the mouth. Do not try to push the tablet through the foil backing. With dry hands, peel away the foil backing and gently remove the tablet. Place the tablet in the mouth and allow it to dissolve, then swallow. While you may take these tablets with water, it is not necessary to do so. Talk to your toll line repairer regarding the use of this medicine in children. Special care may be needed. What side effects may I notice from receiving this medicine? Side effects that you should report to your doctor or health family day care worker as soon as possible: allergic reactions like skin rash, itching or hives, swelling of the face, lips, or tongue breathing problems dizziness fast or irregular heartbeat feeling faint or lightheaded, falls fever and chills swelling of the hands and feet tightness in the chest Side effects that usually do not require medical attention (report to your doctor or health family day care worker if they continue or are bothersome): constipation or diarrhea headache What may interact with this medicine? Do not take this medicine with any of the following medications: -apomorphine -cisapride -dofetilide -dronedarone -pimozide -thioridazine -ziprasidone This medicine may also interact with the following medications: -carbamazepine -phenytoin -rifampicin -tramadol -other medicines that prolong the QT interval (cause an abnormal heart rhythm) What if I miss a dose? If you miss a dose, take it as soon as you can. If it is almost time for your next dose, take only that dose. Do not take double or extra doses. Where should I keep my medicine? Keep out of the reach of children. Store between 2 and 30 degrees C (36 and 86 degrees F). Throw away any unused medicine after the expiration date. What should I tell my health care provider before I take this medicine? They need to know if you have any of these conditions: heart disease history of irregular heartbeat liver disease low levels of magnesium or potassium in the blood an unusual or allergic reaction to ondansetron, granisetron, other medicines, foods, dyes, or preservatives or trying to get breast-feeding What should I watch for while using this medicine? Check with your doctor or health family day care worker as soon as you can if you have any sign of an allergic reaction. Cefixime Oral tablet What is this medicine? CEFIXIME (sef IX eem) is a cephalosporin antibiotic. It is used to treat certain kinds of bacterial infections. It will not work for colds, flu, or other viral infections. How should I use this medicine? Take this medicine by mouth with a glass of water. Follow the directions on the prescription label. You can take it with or without food. If it upsets your stomach, take it with food. Take your medicine at regular intervals. Do not take it more often than directed. Take all of your medicine as directed even if you think your are better. Do not skip doses or stop your medicine early. Talk to your toll line repairer regarding the use of this medicine in children. While this drug may be prescribed for children as young as 6 months for selected conditions, precautions do apply. What side effects may I notice from receiving this medicine? Side effects that you should report to your doctor or health family day care worker as soon as possible: allergic reactions like skin rash, itching or hives, swelling of the face, lips, or tongue bloody or watery diarrhea difficulty breathing or wheezing dizziness fever pain or trouble passing urine or change in the amount of urine redness, blistering, peeling or loosening of the skin, including inside the mouth seizures unusual bleeding or bruising unusually weak or tired yellowing of the eyes or skin Side effects that usually do not require medical attention (report to your doctor or health family day care worker if they continue or are bothersome): diarrhea headache genital or anal irritation loss of appetite nausea, vomiting stomach pain, upset, or gas What may interact with this medicine? aspirin and aspirin-like medicines carbamazepine medicines that treat or prevent blood clots like warfarin What if I miss a dose? If you miss a dose, take it as soon as you can. If it is almost time for your next dose, take only that dose. Do not take double or extra doses. Where should I keep my medicine? Keep out of the reach of children. Store at room temperature between 20 and 25 degrees C (68 and 77 degrees F). Throw away any unused medicine after the expiration date. What should I tell my health care provider before I take this medicine? They need to know if you have any of these conditions: bleeding problems kidney disease stomach or intestine problems (especially colitis) an unusual or allergic reaction to cefixime, other cephalosporin or penicillin antibiotics, other foods, dyes or preservatives or trying to get breast-feeding What should I watch for while using this medicine? Tell your doctor or health family day care worker if your symptoms do not improve or if you get new symptoms. Your doctor will monitor your condition and blood work as needed. Do not treat diarrhea with over the counter products. Contact your doctor if you have diarrhea that lasts more than 2 days or if it is severe and watery. This medicine can interfere with some urine glucose and some urine ketone tests. If you use such tests, talk with your health family day care worker. If you are being treated for a sexually transmitted disease, avoid sexual contact until you have finished your treatment. Having sex can infect your sexual partner. You have been given the following additional information: Pyelonephritis, Female (Adult) Fever Control (Adult) Hydrocodone Bitartrate, Acetaminophen Oral tablet Ondansetron Oral disintegrating tablet Cefixime Oral tablet (Electronically signed by Tho Olson Dr. 05/29/2016 23:50)
--- NOTE | 2016-05-30 00:35 | ED MED RECONCILIATION SUMMARY ---
Patient: MARY SCHMIDT Medication Reconciliation Report [facility] VisitID: [id number] [address] [place] [address] 50y, F Registration Date/Time: 05/29/2016 Weight: 68.0 kg Height/Length: 65 in. BMI: 25.0 ALLERGIES: No Known Drug Allergy The patient's Home Medications are listed below: CONTINUE TAKING THE FOLLOWING MEDICATIONS: Unknown blood pressure medication Zoloft Oral (100 mg) 1 tablet, daily The source(s) of the original Home Medication information: Not obtained. The following Medications were given to the patient in the Emergency Department: IV NS IV Fluids bolus 1000 mL over 1 hour(s), administered: 05/29/2016 9:41:00 PM Toradol [IVP] IVP 30 mg, administered: 05/29/2016 9:42:00 PM Zofran [IVP] IVP 4 mg, administered: 05/29/2016 9:42:00 PM Morphine [IVP] IVP 4 mg, administered: 05/29/2016 11:45:00 PM Ceftriaxone [IVPB] IVPB bolus 0, then 1 gm 150 mL/hr, administered: 05/29/2016 11:49:00 PM The following Medications were prescribed to the patient: Hydrocodone/APAP 5mg / 325mg: take 1 orally every 6 hours as needed for pain. Dispense fifteen (15). No refill. -- Tho Olson Dr. Zofran (orally disintegrating tablets) 4 mg: take 1 orally every 6 hours as needed for nausea and vomiting. Dispense ten (10). Substitution is permissible. -- Tho Olson Dr. Suprax 400 mg: take 1 tab orally every day for 10 days. No refills. Substitution is permissible. -- Tho Olson Dr.
--- NOTE | 2016-05-30 00:35 | ED MED RECONCILIATION SUMMARY ---
Patient: MARY SCHMIDT Medication Reconciliation Report [facility] VisitID: [id number] [address] [place] [address] 50y, F Registration Date/Time: 05/29/2016 Weight: 68.0 kg Height/Length: 65 in. BMI: 25.0 ALLERGIES: No Known Drug Allergy The patient's Home Medications are listed below: CONTINUE TAKING THE FOLLOWING MEDICATIONS: Unknown blood pressure medication Zoloft Oral (100 mg) 1 tablet, daily The source(s) of the original Home Medication information: Not obtained. The following Medications were given to the patient in the Emergency Department: IV NS IV Fluids bolus 1000 mL over 1 hour(s), administered: 05/29/2016 9:41:00 PM Toradol [IVP] IVP 30 mg, administered: 05/29/2016 9:42:00 PM Zofran [IVP] IVP 4 mg, administered: 05/29/2016 9:42:00 PM Morphine [IVP] IVP 4 mg, administered: 05/29/2016 11:45:00 PM Ceftriaxone [IVPB] IVPB bolus 0, then 1 gm 150 mL/hr, administered: 05/29/2016 11:49:00 PM The following Medications were prescribed to the patient: Hydrocodone/APAP 5mg / 325mg: take 1 orally every 6 hours as needed for pain. Dispense fifteen (15). No refill. -- Tho Olson Dr. Zofran (orally disintegrating tablets) 4 mg: take 1 orally every 6 hours as needed for nausea and vomiting. Dispense ten (10). Substitution is permissible. -- Tho Olson Dr. Suprax 400 mg: take 1 tab orally every day for 10 days. No refills. Substitution is permissible. -- Tho Olson Dr.
--- NOTE | 2016-05-30 00:35 | ED MAR SUMMARY ---
..... Medication Administration Record [facility] [address] [place] [address] Patient: MARY SCHMIDT Visit ID: [id number] 50y, F Weight: 68.0 kg Height/Length: 65 in BMI: 25 ALLERGIES: No Known Drug Allergy Start 21:41 05/29/2016 Che Mendoza R.N., Stop 23:40 05/29/2016 Brook Newman R.N. Medication Administered: IV NS (SALINE), Dose: IV Fluids, Bolus: 1000 mL over 1 hour(s), Dispensed: 1000 mL bag, Site: #1 left AC. Medication Ordered: IV NS : initial bolus none -, then 1000 mL/hr for X1 (NOW). Given 21:42 05/29/2016 Che Mendoza R.N. Medication Administered: TORADOL [IVP], Dose: 30 mg IVP, Site: #1 left AC. Medication Ordered: Toradol IV 30 mg (NOW). Given 21:42 05/29/2016 Che Mendoza R.N. Medication Administered: ZOFRAN [IVP] (ONDANSETRON HCL), Dose: 4 mg IVP, Site: #1 left AC. Medication Ordered: Zofran IV 4 mg (NOW). Given 23:45 05/29/2016 Brook Newman R.N. Medication Administered: MORPHINE [IVP], Dose: 4 mg IVP over 1 minute(s), Site: #1 left AC. Medication Ordered: Morphine IV 4 mg (HIGH ALERT MEDICATION, NOW). Start 23:49 05/29/2016 Brook Newman R.N., Stop 00:08 05/30/2016 Rose Lynn, Medication Administered: CEFTRIAXONE [IVPB], Dose: 1 gm IVPB over 20 minute(s), Rate: 150 mL/hr, Dispensed: 50 mL bag, Site: #1 left AC. Medication Ordered: Ceftriaxone IV 1 gm/50mL (NOW).
== END 2016-05-30 00:07 | disposition home or self-care (01) ==
LOC: ED SRH 20:53
DX: N10 Acute pyelonephritis (principal); I10 Essential (primary) hypertension; Z87.891 Personal history of nicotine dependence
CPT/HCPCS: 90004; 90100; 90148; 90469; 92235; 92530; 93070; 95059

== ENCOUNTER 2016-09-20 08:37 | Emergency (ER) | payer OTHER ==
--- NOTE | 2016-09-20 09:48 | ED NURSING NOTES ---
Clinical Report - Nurses [facility] [address] [place] [address] 09/20/2016 8:37 Patient: MARY SCHMIDT TRIAGE Acuity: LEVEL 3. Chief Complaint: LOW BACK PAIN and RIGHT-SIDED and LEFT-SIDED FLANK PAIN. Alert. No acute distress. --09:04 Peyton Galvan R.N. 08:55 09/20/16. BP: 175/103. HR: 75. RR: 18. O2 saturation: 100%. Temp: 99 F (oral). Pain level now: 11/12. --09:04 Peyton Galvan R.N. Weight: 74.8 kg stated. Height/Length: 62 inches Per Patient. BMI: 30.2. --09:00 Peyton Galvan R.N. Medications Antidepressant. --08:58 Peyton Galvan R.N. Adderall Oral. --08:59 Peyton Galvan R.N. Medication/allergy information source: the patient. --09:04 Peyton Galvan R.N. Allergies No Known Drug Allergy. --08:59 Peyton Galvan R.N. History Arrived by private vehicle. Historian: patient. Primary physician (Braeden). This started yesterday. She has had nausea. 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 PAST MEDICAL HX: Immunizations: up-to-date. The patient is post-menopausal. Has had a tubal ligation. SOCIAL HX: Current every day light tobacco smoker (cigarette)- less than 1/2 a pack per day. No alcohol use or drug use. FALL RISK ASSESSMENT: Fall risk assessment completed. No fall risk identified. NUTRITIONAL RISK ASSESSMENT: The nutritional risk assessment revealed no deficiencies. FUNCTIONAL ASSESSMENT: Functional assessment: no impairments noted. LEARNING NEEDS ASSESSMENT: The learning needs assessment revealed no barriers. SKIN INTEGRITY ASSESSMENT: Skin integrity risk assessment completed. No skin integrity risk identified. --09:04 Peyton Galvan R.N. PROBLEMS: Pyelonephritis. Depression. Sprain. Back Pain. Contusion. Tetanus Status. Dental Caries. Immunizations. Hypertension. Acute Pain. Dental Pain. Pharyngitis. --08:59 Peyton Galvan R.N. ADDITIONAL SURGERIES: Tubal Ligation. --08:59 Peyton Galvan R.N. Assessment GENERAL / NEURO / PSYCH: Alert. Oriented X 4. Appears in no acute distress. [place] Coma Scale: 15- eyes open spontaneously (4); best verbal response- oriented x 4 (5); best motor response- obeys commands (6). Patient appears calm and cooperative. RESPIRATORY: Respirations not labored. CVS: Capillary refill less than 2 seconds. GI / : Abdomen soft and nontender. SKIN: Mucous membranes are pink. Skin is warm and dry. --09:04 Peyton Galvan R.N. Interventions ID band on patient. To treatment room. Ambulatory. Gowned. --09:04 Peyton Galvan R.N. PHYSICAL ASSESSMENT 09:03 09/20/16. Ambulatory to room. GENERAL / NEURO / PSYCH: Alert. Oriented X 4. Appears in no acute distress. HEENT: Mucous membranes are pink. RESPIRATORY: Respirations not labored. CVS: Capillary refill less than 2 seconds. GI / : Abdomen soft and nontender. SKIN: Skin is warm and dry. --09:03 Peyton Galvan R.N. NURSING PROGRESS NOTES Patient gowned. Two patient identifiers checked. Checked patient name and birthdate: patient confirmed. Call light placed in reach. Bed placed in lowest position. Brakes of bed on. Patient ready for evaluation- chart flagged and ED physician notified. --09:03 Peyton Galvan R.N. 09:03 09/20/16. Checked patient name and birthdate: patient confirmed. Instructions provided to collect clean catch urine and patient verbalized understanding. Clean catch urine collected with return of yellow-colored clear urine; sample sent to lab for urinalysis. Specimen labeled in the presence of the patient. --09:03 Peyton Galvan R.N. DISPOSITION / DISCHARGE Departure time: 10:10 Sep 20 2016. Condition at departure: improved and stable. No learning barriers present. Discharge instructions provided and reviewed with the patient. Reviewed medication(s) side effects, precautions and dosing information. Prescription(s) given to the patient. Patient verbalized understanding. Written instructions provided in Sami. The patient was discharged by the physician. She was discharged home and accompanied by patient account specialist. She left the Emergency Department ambulatory and via private vehicle. --18:56 Peyton Galvan R.N. 18:55 09/20/16. BP: 187/110 taken while sitting. ED physician notified. HR: 73. RR: 16. O2 saturation: 99% on room air. Temp: 98.7 F. Pain level now: 07/13. --18:56 Peyton Galvan R.N. Locked/Released at 09/20/2016 18:56 by Peyton Galvan R.N.
--- NOTE | 2016-09-20 09:48 | ED ORDER SUMMARY ---
..... Patient: MARY SCHMIDT OrderSheet [facility] VisitID: [id number] [address] [place] [address] 50y, F Registration Date/Time: 09/20/2016 ORDER SHEET Weight: 74.8 kg (stated) Allergies: No Known Drug Allergy GENERAL ORDERS: UA-Culture if indicated Urgent (09:04 09/20/2016 MWinterer R.N. per protocol) (Ack 9:05 Tyrone) (9:07 MWinterer R.N.) MEDICATION ORDERS: IV FLUIDS: ORDER SHEET NOTES: [Electronically signed by Mathieu Gilman MD (10:01 09/20/2016)] [Electronically signed by Peyton Galvan R.N. (18:56 09/20/2016)] [Electronically locked/signed by Peyton Galvan R.N. (18:56 09/20/2016)]
--- NOTE | 2016-09-20 09:48 | ED NURSING NOTES ---
Clinical Report - Nurses [facility] [address] [place] [address] 09/20/2016 8:37 Patient: MARY SCHMIDT TRIAGE Acuity: LEVEL 3. Chief Complaint: LOW BACK PAIN and RIGHT-SIDED and LEFT-SIDED FLANK PAIN. Alert. No acute distress. --09:04 Peyton Galvan R.N. 08:55 09/20/16. BP: 175/103. HR: 75. RR: 18. O2 saturation: 100%. Temp: 99 F (oral). Pain level now: 11/12. --09:04 Peyton Galvan R.N. Weight: 74.8 kg stated. Height/Length: 62 inches Per Patient. BMI: 30.2. --09:00 Peyton Galvan R.N. Medications Antidepressant. --08:58 Peyton Galvan R.N. Adderall Oral. --08:59 Peyton Galvan R.N. Medication/allergy information source: the patient. --09:04 Peyton Galvan R.N. Allergies No Known Drug Allergy. --08:59 Peyton Galvan R.N. History Arrived by private vehicle. Historian: patient. Primary physician (Braeden). This started yesterday. She has had nausea. 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 PAST MEDICAL HX: Immunizations: up-to-date. The patient is post-menopausal. Has had a tubal ligation. SOCIAL HX: Current every day light tobacco smoker (cigarette)- less than 1/2 a pack per day. No alcohol use or drug use. FALL RISK ASSESSMENT: Fall risk assessment completed. No fall risk identified. NUTRITIONAL RISK ASSESSMENT: The nutritional risk assessment revealed no deficiencies. FUNCTIONAL ASSESSMENT: Functional assessment: no impairments noted. LEARNING NEEDS ASSESSMENT: The learning needs assessment revealed no barriers. SKIN INTEGRITY ASSESSMENT: Skin integrity risk assessment completed. No skin integrity risk identified. --09:04 Peyton Galvan R.N. PROBLEMS: Pyelonephritis. Depression. Sprain. Back Pain. Contusion. Tetanus Status. Dental Caries. Immunizations. Hypertension. Acute Pain. Dental Pain. Pharyngitis. --08:59 Peyton Galvan R.N. ADDITIONAL SURGERIES: Tubal Ligation. --08:59 Peyton Galvan R.N. Assessment GENERAL / NEURO / PSYCH: Alert. Oriented X 4. Appears in no acute distress. [place] Coma Scale: 15- eyes open spontaneously (4); best verbal response- oriented x 4 (5); best motor response- obeys commands (6). Patient appears calm and cooperative. RESPIRATORY: Respirations not labored. CVS: Capillary refill less than 2 seconds. GI / : Abdomen soft and nontender. SKIN: Mucous membranes are pink. Skin is warm and dry. --09:04 Peyton Galvan R.N. Interventions ID band on patient. To treatment room. Ambulatory. Gowned. --09:04 Peyton Galvan R.N. PHYSICAL ASSESSMENT 09:03 09/20/16. Ambulatory to room. GENERAL / NEURO / PSYCH: Alert. Oriented X 4. Appears in no acute distress. HEENT: Mucous membranes are pink. RESPIRATORY: Respirations not labored. CVS: Capillary refill less than 2 seconds. GI / : Abdomen soft and nontender. SKIN: Skin is warm and dry. --09:03 Peyton Galvan R.N. NURSING PROGRESS NOTES Patient gowned. Two patient identifiers checked. Checked patient name and birthdate: patient confirmed. Call light placed in reach. Bed placed in lowest position. Brakes of bed on. Patient ready for evaluation- chart flagged and ED physician notified. --09:03 Peyton Galvan R.N. 09:03 09/20/16. Checked patient name and birthdate: patient confirmed. Instructions provided to collect clean catch urine and patient verbalized understanding. Clean catch urine collected with return of yellow-colored clear urine; sample sent to lab for urinalysis. Specimen labeled in the presence of the patient. --09:03 Peyton Galvan R.N. DISPOSITION / DISCHARGE Departure time: 10:10 Sep 20 2016. Condition at departure: improved and stable. No learning barriers present. Discharge instructions provided and reviewed with the patient. Reviewed medication(s) side effects, precautions and dosing information. Prescription(s) given to the patient. Patient verbalized understanding. Written instructions provided in Kazakh. The patient was discharged by the physician. 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 She left the Emergency Department ambulatory and via private vehicle. --18:56 Peyton Galvan R.N. 18:55 09/20/16. BP: 187/110 taken while sitting. ED physician notified. HR: 73. RR: 16. O2 saturation: 99% on room air. Temp: 98.7 F. Pain level now: 07/13. --18:56 Peyton Galvan R.N. Locked/Released at 09/20/2016 18:56 by Peyton Galvan R.N.
--- NOTE | 2016-09-20 09:48 | ED CLINICAL REPORT ---
Clinical Report - Physicians/Mid Levels [facility] [address] [place] [place] [address] 09/20/2016 8:37 Patient: MARY SCHMIDT Time Seen: 09:05. Arrived- By private vehicle. Historian- patient. HISTORY OF PRESENT ILLNESS Chief Complaint: LOW BACK PAIN. This started yesterday and still present. It was gradual in onset and has been constant. The symptoms are described as moderate. The patient has had lower back pain. She has had moderate right-sided and left-sided flank pain with nausea. The patient has had urinary frequency. REVIEW OF SYSTEMS No chills, fever, sweats, calf pain or chest pain. No cough, difficulty breathing, pedal edema, palpitations or abdominal pain. No black stools, bloody stools, constipation, diarrhea or vomiting. No neck pain or headache. All systems otherwise negative, except as recorded above. PAST HISTORY ( Primary physician (Braeden)). Problems: Pyelonephritis. Depression. Sprain. Back Pain. Contusion. Dental Caries. Hypertension. Acute Pain. Dental Pain. Pharyngitis. Additional Surgeries: Tubal Ligation. Medications: Adderall Oral. Antidepressant. Allergies: No Known Drug Allergy. SOCIAL HISTORY Current every day light tobacco smoker (cigarette)- less than 1/2 a pack per day. No alcohol use or drug use. FAMILY HISTORY No significant family medical history. ADDITIONAL NOTES The nursing notes have been reviewed. PHYSICAL EXAM Vital Signs: 09/20/2016 08:55 BP: 175/103. HR: 75. RR: 18. O2 saturation: 100%. Temp: 99 F. Pain level now: 8. Have been reviewed. Appearance: Alert. Eyes: Funduscopic exam normal. ENT: Pharynx normal. Neck: Neck supple. CVS: Heart sounds normal. Respiratory: No respiratory distress. Breath sounds normal. Abdomen: Soft and nontender. Bowel sounds normal. No organomegaly. No mass. Back: Normal external inspection. No CVA tenderness. Skin: Skin warm and dry. Normal skin color. Normal skin turgor. Extremities: Extremities nontender. No calf tenderness. No lower extremity edema. LABS, X-RAYS, AND EKG Laboratory Tests: UA-Culture if indicated: (KEEGAN: 09/20/2016 09:00) ( MsgRcvd 09/20/2016 09:34) Final results Test Result Flag Units (Reference) URINE COLOR YELLOW URINE APPEARANCE CLEAR URINE GLUCOSE NEGATIVE (NEGATIVE) URINE BILIRUBIN NEGATIVE (NEGATIVE) URINE KETONE NEGATIVE (NEGATIVE) URINE SPECIFIC GRAVITY 1.010 (1.010-1.030) URINE PH 7.5 (5.0-8.0) URINE PROTEIN NEGATIVE (NEGATIVE) URINE UROBILINOGEN 0.2 EU/dL (0.2-1.0) URINE NITRITE NEGATIVE (NEGATIVE) URINE BLOOD NEGATIVE (NEGATIVE) URINE LEUK ESTERASE POSITIVE (NEGATIVE) URINE RBC NONE SEEN rbc/hpf (0-1) URINE WBC 1-3 wbc/hpf (0-1) URINE EPITHELIAL CELLS 1-3 EPI/hpf (0-5) URINE BACTERIA FEW (1+) (NONE SEEN) URINE COMMENT CULTURE INDICATED URINE CULTURES ARE SET-UP BASED ON THE FOLLOWING CRITERIA:POSITIVE NITRITEPOSITIVE LEUKOCYTE ESTERASEGREATER THAN 10 WHITE BLOOD CELLSMODERATE (2+) OR GREATER BACTERIA . PROGRESS AND PROCEDURES Course of Care: Patient is stable. Patient/family counseled. Old medical records reviewed. Disposition: Discharged. Condition: stable. CLINICAL IMPRESSION Acute urinary tract infection with pyelonephritis. Hypertension. INSTRUCTIONS No driving or operating machinery while taking medication. Drink plenty of fluids. Warnings: Further evaluation is necessary. GENERAL WARNINGS: Return or contact your physician immediately if your condition worsens or changes unexpectedly, if not improving as expected, or if other problems arise. Your Current Medications: CONTINUE TAKING THE FOLLOWING MEDICATIONS: Adderall Oral. Antidepressant*. Prescription Medications: Zofran 4 mg: Take 1 orally every six hours as needed for nausea/vomiting. Dispense ten (10). No refills. Substitution is permissible. Cipro 500 mg: take 1 tab orally every 12 hours for 10 days. Dispense twenty (20). No refills. Substitution is permissible. Ultram 50 mg: take 1-2 orally every 6 hours as needed for pain. Dispense fifteen (15). No refills. Substitution is permissible. Lisinopril 10 mg: Take 1 orally every 24 hours. Dispense fifteen (15). No refills. Understanding of the discharge instructions verbalized by patient. Follow-up with: [facility], , , [address], , [place], [id number] Follow up in five days. Call for the next available appointment. (Electronically signed by Mathieu Gilman MD 09/20/2016 10:01)
--- NOTE | 2016-09-20 09:48 | ED CLINICAL REPORT ---
Clinical Report - Physicians/Mid Levels [facility] [address] [place] [place] [address] 09/20/2016 8:37 Patient: MARY SCHMIDT Time Seen: 09:05. Arrived- By private vehicle. Historian- patient. HISTORY OF PRESENT ILLNESS Chief Complaint: LOW BACK PAIN. This started yesterday and still present. It was gradual in onset and has been constant. The symptoms are described as moderate. The patient has had lower back pain. She has had moderate right-sided and left-sided flank pain with nausea. The patient has had urinary frequency. REVIEW OF SYSTEMS No chills, fever, sweats, calf pain or chest pain. No cough, difficulty breathing, pedal edema, palpitations or abdominal pain. No black stools, bloody stools, constipation, diarrhea or vomiting. No neck pain or headache. All systems otherwise negative, except as recorded above. PAST HISTORY ( Primary physician (Braeden)). Problems: Pyelonephritis. Depression. Sprain. Back Pain. Contusion. Dental Caries. Hypertension. Acute Pain. Dental Pain. Pharyngitis. Additional Surgeries: Tubal Ligation. Medications: Adderall Oral. Antidepressant. Allergies: No Known Drug Allergy. SOCIAL HISTORY Current every day light tobacco smoker (cigarette)- less than 1/2 a pack per day. No alcohol use or drug use. FAMILY HISTORY No significant family medical history. ADDITIONAL NOTES The nursing notes have been reviewed. PHYSICAL EXAM Vital Signs: 09/20/2016 08:55 BP: 175/103. HR: 75. RR: 18. O2 saturation: 100%. Temp: 99 F. Pain level now: 8. Have been reviewed. Appearance: Alert. Eyes: Funduscopic exam normal. ENT: Pharynx normal. Neck: Neck supple. CVS: Heart sounds normal. Respiratory: No respiratory distress. Breath sounds normal. Abdomen: Soft and nontender. Bowel sounds normal. No organomegaly. No mass. Back: Normal external inspection. No CVA tenderness. Skin: Skin warm and dry. Normal skin color. Normal skin turgor. Extremities: Extremities nontender. No calf tenderness. No lower extremity edema. LABS, X-RAYS, AND EKG Laboratory Tests: UA-Culture if indicated: (KEEGAN: 09/20/2016 09:00) ( MsgRcvd 09/20/2016 09:34) Final results Test Result Flag Units (Reference) URINE COLOR YELLOW URINE APPEARANCE CLEAR URINE GLUCOSE NEGATIVE (NEGATIVE) URINE BILIRUBIN NEGATIVE (NEGATIVE) URINE KETONE NEGATIVE (NEGATIVE) URINE SPECIFIC GRAVITY 1.010 (1.010-1.030) URINE PH 7.5 (5.0-8.0) URINE PROTEIN NEGATIVE (NEGATIVE) URINE UROBILINOGEN 0.2 EU/dL (0.2-1.0) URINE NITRITE NEGATIVE (NEGATIVE) URINE BLOOD NEGATIVE (NEGATIVE) URINE LEUK ESTERASE POSITIVE (NEGATIVE) URINE RBC NONE SEEN rbc/hpf (0-1) URINE WBC 1-3 wbc/hpf (0-1) URINE EPITHELIAL CELLS 1-3 EPI/hpf (0-5) URINE BACTERIA FEW (1+) (NONE SEEN) URINE COMMENT CULTURE INDICATED URINE CULTURES ARE SET-UP BASED ON THE FOLLOWING CRITERIA:POSITIVE NITRITEPOSITIVE LEUKOCYTE ESTERASEGREATER THAN 10 WHITE BLOOD CELLSMODERATE (2+) OR GREATER BACTERIA . PROGRESS AND PROCEDURES Course of Care: Patient is stable. Patient/family counseled. Old medical records reviewed. Disposition: Discharged. Condition: stable. CLINICAL IMPRESSION Acute urinary tract infection with pyelonephritis. Hypertension. INSTRUCTIONS No driving or operating machinery while taking medication. Drink plenty of fluids. Warnings: Further evaluation is necessary. GENERAL WARNINGS: Return or contact your physician immediately if your condition worsens or changes unexpectedly, if not improving as expected, or if other problems arise. Your Current Medications: CONTINUE TAKING THE FOLLOWING MEDICATIONS: Adderall Oral. Antidepressant*. Prescription Medications: Zofran 4 mg: Take 1 orally every six hours as needed for nausea/vomiting. Dispense ten (10). No refills. Substitution is permissible. Cipro 500 mg: take 1 tab orally every 12 hours for 10 days. Dispense twenty (20). No refills. Substitution is permissible. Ultram 50 mg: take 1-2 orally every 6 hours as needed for pain. Dispense fifteen (15). No refills. Substitution is permissible. Lisinopril 10 mg: Take 1 orally every 24 hours. Dispense fifteen (15). No refills. Understanding of the discharge instructions verbalized by patient. Follow-up with: [facility], , , [address], , [place], [id number] Follow up in five days. Call for the next available appointment. (Electronically signed by Mathieu Gilman MD 09/20/2016 10:01)
--- NOTE | 2016-09-20 09:48 | ED ORDER SUMMARY ---
..... Patient: MARY SCHMIDT OrderSheet [facility] VisitID: [id number] [address] [place] [address] 50y, F Registration Date/Time: 09/20/2016 ORDER SHEET Weight: 74.8 kg (stated) Allergies: No Known Drug Allergy GENERAL ORDERS: UA-Culture if indicated Urgent (09:04 09/20/2016 MWinterer R.N. per protocol) (Ack 9:05 Tyroen) (9:07 MWinterer R.N.) MEDICATION ORDERS: IV FLUIDS: ORDER SHEET NOTES: [Electronically signed by Mathieu Gilman MD (10:01 09/20/2016)] [Electronically signed by Peyton Galvan R.N. (18:56 09/20/2016)] [Electronically locked/signed by Petyon Galvan R.N. (18:56 09/20/2016)]
--- NOTE | 2016-09-20 18:57 | ED MED RECONCILIATION SUMMARY ---
Patient: MARY SCHMIDT Medication Reconciliation Report [facility] VisitID: [id number] [address] [place] [address] 50y, F Registration Date/Time: 09/20/2016 Weight: 74.8 kg Height/Length: 62 in. BMI: 30.2 ALLERGIES: No Known Drug Allergy The patient's Home Medications are listed below: CONTINUE TAKING THE FOLLOWING MEDICATIONS: Adderall Oral Antidepressant The source(s) of the original Home Medication information: patient The following Medications were given to the patient in the Emergency Department: None. The following Medications were prescribed to the patient: Zofran 4 mg: Take 1 orally every six hours as needed for nausea/vomiting. Dispense ten (10). No refills. Substitution is permissible. -- Mathieu Gilman MD Cipro 500 mg: take 1 tab orally every 12 hours for 10 days. Dispense twenty (20). No refills. Substitution is permissible. -- Mathieu Gilman MD Ultram 50 mg: take 1-2 orally every 6 hours as needed for pain. Dispense fifteen (15). No refills. Substitution is permissible. -- Mathieu Gilman MD Lisinopril 10 mg: Take 1 orally every 24 hours. Dispense fifteen (15). No refills. -- Mathieu Gilman MD
--- NOTE | 2016-09-20 18:57 | ED MAR SUMMARY ---
..... Medication Administration Record [facility] [address] [place] [id number] Patient: MARY SCHMIDT Visit ID: [id number] 50y, F Weight: 74.8 kg Height/Length: 62 in BMI: 30.2 ALLERGIES: No Known Drug Allergy
--- NOTE | 2016-09-20 18:57 | ED DISCHARGE INSTRUCTIONS ---
Patient: MARY SCHMIDT General Instructions [facility] VisitID: [id number] [address] [place] [address] 50y, F Registration Date/Time: 09/20/2016 Acute urinary tract infection with pyelonephritis. Hypertension. INSTRUCTIONS No driving or operating machinery while taking medication. Drink plenty of fluids. Warnings: Further evaluation is necessary. GENERAL WARNINGS: Return or contact your physician immediately if your condition worsens or changes unexpectedly, if not improving as expected, or if other problems arise. Your Current Medications: CONTINUE TAKING THE FOLLOWING MEDICATIONS: Adderall Oral. Antidepressant*. Prescription Medications: Zofran 4 mg: Take 1 orally every six hours as needed for nausea/vomiting. Dispense ten (10). No refills. Substitution is permissible. Cipro 500 mg: take 1 tab orally every 12 hours for 10 days. Dispense twenty (20). No refills. Substitution is permissible. Ultram 50 mg: take 1-2 orally every 6 hours as needed for pain. Dispense fifteen (15). No refills. Substitution is permissible. Lisinopril 10 mg: Take 1 orally every 24 hours. Dispense fifteen (15). No refills. Understanding of the discharge instructions verbalized by patient. Follow-up with: [facility], , , [address], , [place], [address] Follow up in five days. Call for the next available appointment. ADDITIONAL INFORMATION Bladder Infection,Female (Adult) A bladder infection ("cystitis" or "UTI") usually causes a constant urge to urinate and a burning when passing urine. Urine may be cloudy, smelly or dark. There may be pain in the lower abdomen. A bladder infection occurs when bacteria from the vaginal area enter the bladder opening (urethra). This can occur from sexual intercourse, wearing tight clothing, dehydration and other factors. Home Care: Drink lots of fluids (at least 6-8 glasses a day, unless you must restrict fluids for other medical reasons). This will force the medicine into your urinary system and flush the bacteria out of your body. Avoid sexual intercourse until your symptoms are gone. Avoid caffeine, alcohol and spicy foods. These can irritate the bladder. A bladder infection is treated with antibiotics. You may also be given Pyridium (generic = phenazopyridine) to reduce the burning sensation. This medicine will cause your urine to become a bright orange color. The orange urine may stain clothing. You may wear a pad or panty-liner to protect clothing. Preventing Future Infections: Always wipe from front to back after a bowel movement. Keep the genital area clean and dry. Drink plenty of fluids each day to avoid dehydration. Both sexual partners should wash before intercourse. Urinate right after intercourse to flush out the bladder. Wear cotton underwear and cotton-lined panty hose; avoid tight-fitting pants. If you are on control pills and are having frequent bladder infections, discuss with your doctor. Follow Up: Return to this facility or see your doctor if ALL symptoms are not gone after three days of treatment. Get Prompt Medical Attention if any of the following occur: Fever of 100.4F (38C) or higher, or as directed by your healthcare provider No improvement by the third day of treatment Increasing back or abdominal pain Repeated vomiting; unable to keep medicine down Weakness, dizziness or fainting Vaginal discharge Pain, redness or swelling in the labia (outer vaginal area) Hypertension, Out Of Control (Established) Your blood pressure was unusually high today. This can occur as a result of missing doses of your blood pressure medicine. Some asthma inhalers, decongestants, diet pills, and street drugs such as cocaine and amphetamine can worsen hypertension. An increase in body weight, increase in salt intake, smoking, and caffeine are other causes. Emotional upset or acute pain can cause a sudden rapid rise in blood pressure which may return to normal after a period of rest. A normal blood pressure is less than 140/90. The first (top) number is the systolic pressure. The second (bottom) number is the diastolic pressure. Hypertension exists when either the top number is 140 or higher, OR the bottom number is 90 or higher on repeated measurements. Home Care: All patients with high blood pressure should do the following to lower their pressure. If you are on blood pressure medicines, then these methods may reduce or eliminate your need for medicines in the future. Begin a weight-loss program if you are overweight. Reduce your salt intake. Avoid high-salt foods (olives, pickles, smoked meats, salted potato chips, etc.). Do not add salt to your food at the table. Use only small amounts of salt when cooking. Begin an exercise program. Discuss with your doctor what type of exercise program would be best for you. It doesnt have to be difficult. Even brisk walking for 20 minutes3 times a week is a good form of exercise. Avoid medicines which contain heart stimulants. This includes many cold and sinus decongestant pills and sprays as well as diet pills. Check the warnings about hypertension on the label. Stimulants such as amphetamine or cocaine could be lethal for someone with hypertension. Never take these. Limit your caffeine intake or switch to decaf. Stop smoking. If you are a long-time smoker, this can be hard. Enroll in a stop-smoking program to improve your chance of success. Talk to your physician about ways to improve your chance of success. Learning how to handle stress better is an important part of any program to lower blood pressure. Learn about relaxation methods such as meditation, yoga, or biofeedback. If medicines were prescribed, take them exactly as directed. Missing doses may cause your blood pressure to get out of control. Consider buying an automatic blood pressure machine (available at many pharmacies). Use this to monitor your blood pressure and report to your doctor. Follow Up: Regular visits to your own doctor for blood pressure checks and medicine adjustment is an important part of your care. Make a follow-up appointment as directed by our staff. Get Prompt Medical Attention if any of the following occur: Chest, arm, shoulder, neck, or upper back pain Shortness of breath Severe headache Throbbing or rushing sound in the ears Nosebleed Extreme drowsiness, confusion, or fainting Dizziness or vertigo (dizziness with spinning sensation) Weakness of an arm or leg or one side of the face Difficulty with speech or vision Ondansetron Oral disintegrating tablet What is this medicine? ONDANSETRON (on LUCIUS se steven) is used to treat nausea and vomiting caused by chemotherapy. It is also used to prevent or treat nausea and vomiting after surgery. How should I use this medicine? These tablets are made to dissolve in the mouth. Do not try to push the tablet through the foil backing. With dry hands, peel away the foil backing and gently remove the tablet. Place the tablet in the mouth and allow it to dissolve, then swallow. While you may take these tablets with water, it is not necessary to do so. Talk to your net software developer regarding the use of this medicine in children. Special care may be needed. What side effects may I notice from receiving this medicine? Side effects that you should report to your doctor or health pet caretaker as soon as possible: allergic reactions like skin rash, itching or hives, swelling of the face, lips, or tongue breathing problems dizziness fast or irregular heartbeat feeling faint or lightheaded, falls fever and chills swelling of the hands and feet tightness in the chest Side effects that usually do not require medical attention (report to your doctor or health pet caretaker if they continue or are bothersome): constipation or diarrhea headache What may interact with this medicine? Do not take this medicine with any of the following medications: -apomorphine -cisapride -dofetilide -dronedarone -pimozide -thioridazine -ziprasidone This medicine may also interact with the following medications: -carbamazepine -phenytoin -rifampicin -tramadol -other medicines that prolong the QT interval (cause an abnormal heart rhythm) What if I miss a dose? If you miss a dose, take it as soon as you can. If it is almost time for your next dose, take only that dose. Do not take double or extra doses. Where should I keep my medicine? Keep out of the reach of children. Store between 2 and 30 degrees C (36 and 86 degrees F). Throw away any unused medicine after the expiration date. What should I tell my health care provider before I take this medicine? They need to know if you have any of these conditions: heart disease history of irregular heartbeat liver disease low levels of magnesium or potassium in the blood an unusual or allergic reaction to ondansetron, granisetron, other medicines, foods, dyes, or preservatives or trying to get breast-feeding What should I watch for while using this medicine? Check with your doctor or health pet caretaker as soon as you can if you have any sign of an allergic reaction. Ciprofloxacin Hydrochloride Oral tablet What is this medicine? CIPROFLOXACIN (sip katty FLOX a sin) is a quinolone antibiotic. It is used to treat certain kinds of bacterial infections. It will not work for colds, flu, or other viral infections. How should I use this medicine? Take this medicine by mouth with a glass of water. Follow the directions on the prescription label. Take your medicine at regular intervals. Do not take your medicine more often than directed. Take all of your medicine as directed even if you think your are better. Do not skip doses or stop your medicine early. You can take this medicine with food or on an empty stomach. It can be taken with a meal that contains dairy or calcium, but do not take it alone with a dairy product, like milk or yogurt or calcium-fortified juice. A special MedGuide will be given to you by the pharmacist with each prescription and refill. Be sure to read this information carefully each time. Talk to your net software developer regarding the use of this medicine in children. Special care may be needed. What side effects may I notice from receiving this medicine? Side effects that you should report to your doctor or health pet caretaker as soon as possible: - allergic reactions like skin rash, itching or hives, swelling of the face, lips, or tongue - breathing problems - confusion, nightmares or hallucinations - feeling faint or lightheaded, falls - irregular heartbeat - joint, muscle or tendon pain or swelling - pain or trouble passing urine -persistent headache with or without blurred vision - redness, blistering, peeling or loosening of the skin, including inside the mouth - seizure - unusual pain, numbness, tingling, or weakness Side effects that usually do not require medical attention (report to your doctor or health pet caretaker if they continue or are bothersome): - diarrhea - nausea or stomach upset - white patches or sores in the mouth What may interact with this medicine? Do not take this medicine with any of the following medications: cisapride droperidol terfenadine tizanidine This medicine may also interact with the following medications: antacids caffeine cyclosporin didanosine (ddI) buffered tablets or powder medicines for diabetes medicines for inflammation like ibuprofen, naproxen methotrexate multivitamins omeprazole phenytoin probenecid sucralfate theophylline warfarin What if I miss a dose? If you miss a dose, take it as soon as you can. If it is almost time for your next dose, take only that dose. Do not take double or extra doses. Where should I keep my medicine? Keep out of the reach of children. Store at room temperature below 30 degrees C (86 degrees F). Keep container tightly closed. Throw away any unused medicine after the expiration date. What should I tell my health care provider before I take this medicine? They need to know if you have any of these conditions: -bone problems -cerebral disease -joint problems -irregular heartbeat -kidney disease -liver disease -myasthenia gravis -seizure disorder -tendon problems -an unusual or allergic reaction to ciprofloxacin, other antibiotics or medicines, foods, dyes, or preservatives - or trying to get -breast-feeding What should I watch for while using this medicine? Tell your doctor or health pet caretaker if your symptoms do not improve. Do not treat diarrhea with over the counter products. Contact your doctor if you have diarrhea that lasts more than 2 days or if it is severe and watery. You may get drowsy or dizzy. Do not drive, use machinery, or do anything that needs mental alertness until you know how this medicine affects you. Do not stand or sit up quickly, especially if you are an older patient. This reduces the risk of dizzy or fainting spells. This medicine can make you more sensitive to the sun. Keep out of the sun. If you cannot avoid being in the sun, wear protective clothing and use sunscreen. Do not use sun lamps or tanning beds/booths. Avoid antacids, aluminum, calcium, iron, magnesium, and zinc products for 6 hours before and 2 hours after taking a dose of this medicine. Tramadol Hydrochloride Oral tablet What is this medicine? TRAMADOL (TRA ma dole) is a pain reliever. It is used to treat moderate to severe pain in adults. How should I use this medicine? Take this medicine by mouth with a full glass of water. Follow the directions on the prescription label. If the medicine upsets your stomach, take it with food or milk. Do not take more medicine than you are told to take. Talk to your net software developer regarding the use of this medicine in children. Special care may be needed. What side effects may I notice from receiving this medicine? Side effects that you should report to your doctor or health pet caretaker as soon as possible: allergic reactions like skin rash, itching or hives, swelling of the face, lips, or tongue breathing difficulties, wheezing confusion itching light headedness or fainting spells redness, blistering, peeling or loosening of the skin, including inside the mouth seizures Side effects that usually do not require medical attention (report to your doctor or health pet caretaker if they continue or are bothersome): constipation dizziness drowsiness headache nausea, vomiting What may interact with this medicine? Do not take this medicine with any of the following medications: MAOIs like Carbex, Eldepryl, Marplan, Nardil, and Parnate This medicine may also interact with the following medications: alcohol or medicines that contain alcohol antihistamines benzodiazepines bupropion carbamazepine or oxcarbazepine clozapine cyclobenzaprine digoxin furazolidone linezolid medicines for depression, anxiety, or psychotic disturbances medicines for migraine headache like almotriptan, eletriptan, frovatriptan, naratriptan, rizatriptan, sumatriptan, zolmitriptan medicines for pain like pentazocine, buprenorphine, butorphanol, meperidine, nalbuphine, and propoxyphene medicines for sleep muscle relaxants naltrexone phenobarbital phenothiazines like perphenazine, thioridazine, chlorpromazine, mesoridazine, fluphenazine, prochlorperazine, promazine, and trifluoperazine procarbazine warfarin What if I miss a dose? If you miss a dose, take it as soon as you can. If it is almost time for your next dose, take only that dose. Do not take double or extra doses. Where should I keep my medicine? Keep out of the reach of children. Store at room temperature between 15 and 30 degrees C (59 and 86 degrees F). Keep container tightly closed. Throw away any unused medicine after the expiration date. What should I tell my health care provider before I take this medicine? They need to know if you have any of these conditions: brain tumor depression drug abuse or addiction head injury if you frequently drink alcohol containing drinks kidney disease or trouble passing urine liver disease lung disease, asthma, or breathing problems seizures or epilepsy suicidal thoughts, plans, or attempt; a previous suicide attempt by you or a family member an unusual or allergic reaction to tramadol, codeine, other medicines, foods, dyes, or preservatives or trying to get breast-feeding What should I watch for while using this medicine? Tell your doctor or health pet caretaker if your pain does not go away, if it gets worse, or if you have new or a different type of pain. You may develop tolerance to the medicine. Tolerance means that you will need a higher dose of the medicine for pain relief. Tolerance is normal and is expected if you take this medicine for a long time. Do not suddenly stop taking your medicine because you may develop a severe reaction. Your body becomes used to the medicine. This does NOT mean you are addicted. Addiction is a behavior related to getting and using a drug for a non-medical reason. If you have pain, you have a medical reason to take pain medicine. Your doctor will tell you how much medicine to take. If your doctor wants you to stop the medicine, the dose will be slowly lowered over time to avoid any side effects. You may get drowsy or dizzy. Do not drive, use machinery, or do anything that needs mental alertness until you know how this medicine affects you. Do not stand or sit up quickly, especially if you are an older patient. This reduces the risk of dizzy or fainting spells. Alcohol can increase or decrease the effects of this medicine. Avoid alcoholic drinks. You may have constipation. Try to have a bowel movement at least every 2 to 3 days. If you do not have a bowel movement for 3 days, call your doctor or health pet caretaker. Your mouth may get dry. Chewing sugarless gum or sucking hard candy, and drinking plenty of water may help. Contact your doctor if the problem does not go away or is severe. Lisinopril Oral tablet What is this medicine? LISINOPRIL (lyse IN oh pril) is an GWEN inhibitor. This medicine is used to treat high blood pressure and heart failure. It is also used to protect the heart immediately after a heart attack. How should I use this medicine? Take this medicine by mouth with a glass of water. Follow the directions on your prescription label. You may take this medicine with or without food. Take your medicine at regular intervals. Do not stop taking this medicine except on the advice of your doctor or health pet caretaker. Talk to your net software developer regarding the use of this medicine in children. Special care may be needed. While this drug may be prescribed for children as young as 6 years of age for selected conditions, precautions do apply. What side effects may I notice from receiving this medicine? Side effects that you should report to your doctor or health pet caretaker as soon as possible: abdominal pain with or without nausea or vomiting allergic reactions like skin rash or hives, swelling of the hands, feet, face, lips, throat, or tongue dark urine difficulty breathing dizzy, lightheaded or fainting spell fever or sore throat irregular heart beat, chest pain pain or difficulty passing urine redness, blistering, peeling or loosening of the skin, including inside the mouth unusually weak yellowing of the eyes or skin Side effects that usually do not require medical attention (report to your doctor or health pet caretaker if they continue or are bothersome): change in taste cough decreased sexual function or desire headache sun sensitivity tiredness What may interact with this medicine? diuretics lithium NSAIDs, medicines for pain and inflammation, like ibuprofen or naproxen [id number] herbal supplements like hawthorn potassium salts or potassium supplements salt substitutes What if I miss a dose? If you miss a dose, take it as soon as you can. If it is almost time for your next dose, take only that dose. Do not take double or extra doses. Where should I keep my medicine? Keep out of the reach of children. Store at room temperature between 15 and 30 degrees C (59 and 86 degrees F). Protect from moisture. Keep container tightly closed. Throw away any unused medicine after the expiration date. What should I tell my health care provider before I take this medicine? They need to know if you have any of these conditions: diabetes heart or blood vessel disease immune system disease like lupus or scleroderma kidney disease low blood pressure previous swelling of the tongue, face, or lips with difficulty breathing, difficulty swallowing, hoarseness, or tightening of the throat an unusual or allergic reaction to lisinopril, other GWEN inhibitors, insect venom, foods, dyes, or preservatives or trying to get breast-feeding What should I watch for while using this medicine? Visit your doctor or health pet caretaker for regular check ups. Check your blood pressure as directed. Ask your doctor what your blood pressure should be, and when you should contact him or her. Call your doctor or health pet caretaker if you notice an irregular or fast heart beat. Women should inform their doctor if they wish to become or think they might be . There is a potential for serious side effects to an unborn child. Talk to your health pet caretaker or pharmacist for more information. Check with your doctor or health pet caretaker if you get an attack of severe diarrhea, nausea and vomiting, or if you sweat a lot. The loss of too much body fluid can make it dangerous for you to take this medicine. You may get drowsy or dizzy. Do not drive, use machinery, or do anything that needs mental alertness until you know how this drug affects you. Do not stand or sit up quickly, especially if you are an older patient. This reduces the risk of dizzy or fainting spells. Alcohol can make you more drowsy and dizzy. Avoid alcoholic drinks. Avoid salt substitutes unless you are told otherwise by your doctor or health pet caretaker. Do not treat yourself for coughs, colds, or pain while you are taking this medicine without asking your doctor or health pet caretaker for advice. Some ingredients may increase your blood pressure. You have been given the following additional information: Bladder Infection, Female (Adult) Hypertension, Established, Out Of Control Ondansetron Oral disintegrating tablet Ciprofloxacin Hydrochloride Oral tablet Tramadol Hydrochloride Oral tablet Lisinopril Oral tablet No driving or operating machinery while taking medication. (Electronically signed by Mathieu Gilman MD 09/20/2016 10:01)
--- NOTE | 2016-09-20 18:57 | ED DISCHARGE INSTRUCTIONS ---
Patient: MARY SCHMIDT General Instructions [facility] VisitID: [id number] [address] [place] [address] 50y, F Registration Date/Time: 09/20/2016 Acute urinary tract infection with pyelonephritis. Hypertension. INSTRUCTIONS No driving or operating machinery while taking medication. Drink plenty of fluids. Warnings: Further evaluation is necessary. GENERAL WARNINGS: Return or contact your physician immediately if your condition worsens or changes unexpectedly, if not improving as expected, or if other problems arise. Your Current Medications: CONTINUE TAKING THE FOLLOWING MEDICATIONS: Adderall Oral. Antidepressant*. Prescription Medications: Zofran 4 mg: Take 1 orally every six hours as needed for nausea/vomiting. Dispense ten (10). No refills. Substitution is permissible. Cipro 500 mg: take 1 tab orally every 12 hours for 10 days. Dispense twenty (20). No refills. Substitution is permissible. Ultram 50 mg: take 1-2 orally every 6 hours as needed for pain. Dispense fifteen (15). No refills. Substitution is permissible. Lisinopril 10 mg: Take 1 orally every 24 hours. Dispense fifteen (15). No refills. Understanding of the discharge instructions verbalized by patient. Follow-up with: [facility], , , [address], , [place], [id number] Follow up in five days. Call for the next available appointment. ADDITIONAL INFORMATION Bladder Infection,Female (Adult) A bladder infection ("cystitis" or "UTI") usually causes a constant urge to urinate and a burning when passing urine. Urine may be cloudy, smelly or dark. There may be pain in the lower abdomen. A bladder infection occurs when bacteria from the vaginal area enter the bladder opening (urethra). This can occur from sexual intercourse, wearing tight clothing, dehydration and other factors. Home Care: Drink lots of fluids (at least 6-8 glasses a day, unless you must restrict fluids for other medical reasons). This will force the medicine into your urinary system and flush the bacteria out of your body. Avoid sexual intercourse until your symptoms are gone. Avoid caffeine, alcohol and spicy foods. These can irritate the bladder. A bladder infection is treated with antibiotics. You may also be given Pyridium (generic = phenazopyridine) to reduce the burning sensation. This medicine will cause your urine to become a bright orange color. The orange urine may stain clothing. You may wear a pad or panty-liner to protect clothing. Preventing Future Infections: Always wipe from front to back after a bowel movement. Keep the genital area clean and dry. Drink plenty of fluids each day to avoid dehydration. Both sexual partners should wash before intercourse. Urinate right after intercourse to flush out the bladder. Wear cotton underwear and cotton-lined panty hose; avoid tight-fitting pants. If you are on control pills and are having frequent bladder infections, discuss with your doctor. Follow Up: Return to this facility or see your doctor if ALL symptoms are not gone after three days of treatment. Get Prompt Medical Attention if any of the following occur: Fever of 100.4F (38C) or higher, or as directed by your healthcare provider No improvement by the third day of treatment Increasing back or abdominal pain Repeated vomiting; unable to keep medicine down Weakness, dizziness or fainting Vaginal discharge Pain, redness or swelling in the labia (outer vaginal area) Hypertension, Out Of Control (Established) Your blood pressure was unusually high today. This can occur as a result of missing doses of your blood pressure medicine. Some asthma inhalers, decongestants, diet pills, and street drugs such as cocaine and amphetamine can worsen hypertension. An increase in body weight, increase in salt intake, smoking, and caffeine are other causes. Emotional upset or acute pain can cause a sudden rapid rise in blood pressure which may return to normal after a period of rest. A normal blood pressure is less than 140/90. The first (top) number is the systolic pressure. The second (bottom) number is the diastolic pressure. Hypertension exists when either the top number is 140 or higher, OR the bottom number is 90 or higher on repeated measurements. Home Care: All patients with high blood pressure should do the following to lower their pressure. If you are on blood pressure medicines, then these methods may reduce or eliminate your need for medicines in the future. Begin a weight-loss program if you are overweight. Reduce your salt intake. Avoid high-salt foods (olives, pickles, smoked meats, salted potato chips, etc.). Do not add salt to your food at the table. Use only small amounts of salt when cooking. Begin an exercise program. Discuss with your doctor what type of exercise program would be best for you. It doesnt have to be difficult. Even brisk walking for 20 minutes3 times a week is a good form of exercise. Avoid medicines which contain heart stimulants. This includes many cold and sinus decongestant pills and sprays as well as diet pills. Check the warnings about hypertension on the label. Stimulants such as amphetamine or cocaine could be lethal for someone with hypertension. Never take these. Limit your caffeine intake or switch to decaf. Stop smoking. If you are a long-time smoker, this can be hard. Enroll in a stop-smoking program to improve your chance of success. Talk to your physician about ways to improve your chance of success. Learning how to handle stress better is an important part of any program to lower blood pressure. Learn about relaxation methods such as meditation, yoga, or biofeedback. If medicines were prescribed, take them exactly as directed. Missing doses may cause your blood pressure to get out of control. Consider buying an automatic blood pressure machine (available at many pharmacies). Use this to monitor your blood pressure and report to your doctor. Follow Up: Regular visits to your own doctor for blood pressure checks and medicine adjustment is an important part of your care. Make a follow-up appointment as directed by our staff. Get Prompt Medical Attention if any of the following occur: Chest, arm, shoulder, neck, or upper back pain Shortness of breath Severe headache Throbbing or rushing sound in the ears Nosebleed Extreme drowsiness, confusion, or fainting Dizziness or vertigo (dizziness with spinning sensation) Weakness of an arm or leg or one side of the face Difficulty with speech or vision Ondansetron Oral disintegrating tablet What is this medicine? ONDANSETRON (on LUCIUS se steven) is used to treat nausea and vomiting caused by chemotherapy. It is also used to prevent or treat nausea and vomiting after surgery. How should I use this medicine? These tablets are made to dissolve in the mouth. Do not try to push the tablet through the foil backing. With dry hands, peel away the foil backing and gently remove the tablet. Place the tablet in the mouth and allow it to dissolve, then swallow. While you may take these tablets with water, it is not necessary to do so. Talk to your wood and hardware outfitter regarding the use of this medicine in children. Special care may be needed. What side effects may I notice from receiving this medicine? Side effects that you should report to your doctor or health acute care physician as soon as possible: allergic reactions like skin rash, itching or hives, swelling of the face, lips, or tongue breathing problems dizziness fast or irregular heartbeat feeling faint or lightheaded, falls fever and chills swelling of the hands and feet tightness in the chest Side effects that usually do not require medical attention (report to your doctor or health acute care physician if they continue or are bothersome): constipation or diarrhea headache What may interact with this medicine? Do not take this medicine with any of the following medications: -apomorphine -cisapride -dofetilide -dronedarone -pimozide -thioridazine -ziprasidone This medicine may also interact with the following medications: -carbamazepine -phenytoin -rifampicin -tramadol -other medicines that prolong the QT interval (cause an abnormal heart rhythm) What if I miss a dose? If you miss a dose, take it as soon as you can. If it is almost time for your next dose, take only that dose. Do not take double or extra doses. Where should I keep my medicine? Keep out of the reach of children. Store between 2 and 30 degrees C (36 and 86 degrees F). Throw away any unused medicine after the expiration date. What should I tell my health care provider before I take this medicine? They need to know if you have any of these conditions: heart disease history of irregular heartbeat liver disease low levels of magnesium or potassium in the blood an unusual or allergic reaction to ondansetron, granisetron, other medicines, foods, dyes, or preservatives or trying to get breast-feeding What should I watch for while using this medicine? Check with your doctor or health acute care physician as soon as you can if you have any sign of an allergic reaction. Ciprofloxacin Hydrochloride Oral tablet What is this medicine? CIPROFLOXACIN (sip katty FLOX a sin) is a quinolone antibiotic. It is used to treat certain kinds of bacterial infections. It will not work for colds, flu, or other viral infections. How should I use this medicine? Take this medicine by mouth with a glass of water. Follow the directions on the prescription label. Take your medicine at regular intervals. Do not take your medicine more often than directed. Take all of your medicine as directed even if you think your are better. Do not skip doses or stop your medicine early. You can take this medicine with food or on an empty stomach. It can be taken with a meal that contains dairy or calcium, but do not take it alone with a dairy product, like milk or yogurt or calcium-fortified juice. A special MedGuide will be given to you by the pharmacist with each prescription and refill. Be sure to read this information carefully each time. Talk to your wood and hardware outfitter regarding the use of this medicine in children. Special care may be needed. What side effects may I notice from receiving this medicine? Side effects that you should report to your doctor or health acute care physician as soon as possible: - allergic reactions like skin rash, itching or hives, swelling of the face, lips, or tongue - breathing problems - confusion, nightmares or hallucinations - feeling faint or lightheaded, falls - irregular heartbeat - joint, muscle or tendon pain or swelling - pain or trouble passing urine -persistent headache with or without blurred vision - redness, blistering, peeling or loosening of the skin, including inside the mouth - seizure - unusual pain, numbness, tingling, or weakness Side effects that usually do not require medical attention (report to your doctor or health acute care physician if they continue or are bothersome): - diarrhea - nausea or stomach upset - white patches or sores in the mouth What may interact with this medicine? Do not take this medicine with any of the following medications: cisapride droperidol terfenadine tizanidine This medicine may also interact with the following medications: antacids caffeine cyclosporin didanosine (ddI) buffered tablets or powder medicines for diabetes medicines for inflammation like ibuprofen, naproxen methotrexate multivitamins omeprazole phenytoin probenecid sucralfate theophylline warfarin What if I miss a dose? If you miss a dose, take it as soon as you can. If it is almost time for your next dose, take only that dose. Do not take double or extra doses. Where should I keep my medicine? Keep out of the reach of children. Store at room temperature below 30 degrees C (86 degrees F). Keep container tightly closed. Throw away any unused medicine after the expiration date. What should I tell my health care provider before I take this medicine? They need to know if you have any of these conditions: -bone problems -cerebral disease -joint problems -irregular heartbeat -kidney disease -liver disease -myasthenia gravis -seizure disorder -tendon problems -an unusual or allergic reaction to ciprofloxacin, other antibiotics or medicines, foods, dyes, or preservatives - or trying to get -breast-feeding What should I watch for while using this medicine? Tell your doctor or health acute care physician if your symptoms do not improve. Do not treat diarrhea with over the counter products. Contact your doctor if you have diarrhea that lasts more than 2 days or if it is severe and watery. You may get drowsy or dizzy. Do not drive, use machinery, or do anything that needs mental alertness until you know how this medicine affects you. Do not stand or sit up quickly, especially if you are an older patient. This reduces the risk of dizzy or fainting spells. This medicine can make you more sensitive to the sun. Keep out of the sun. If you cannot avoid being in the sun, wear protective clothing and use sunscreen. Do not use sun lamps or tanning beds/booths. Avoid antacids, aluminum, calcium, iron, magnesium, and zinc products for 6 hours before and 2 hours after taking a dose of this medicine. Tramadol Hydrochloride Oral tablet What is this medicine? TRAMADOL (TRA ma dole) is a pain reliever. It is used to treat moderate to severe pain in adults. How should I use this medicine? Take this medicine by mouth with a full glass of water. Follow the directions on the prescription label. If the medicine upsets your stomach, take it with food or milk. Do not take more medicine than you are told to take. Talk to your wood and hardware outfitter regarding the use of this medicine in children. Special care may be needed. What side effects may I notice from receiving this medicine? Side effects that you should report to your doctor or health acute care physician as soon as possible: allergic reactions like skin rash, itching or hives, swelling of the face, lips, or tongue breathing difficulties, wheezing confusion itching light headedness or fainting spells redness, blistering, peeling or loosening of the skin, including inside the mouth seizures Side effects that usually do not require medical attention (report to your doctor or health acute care physician if they continue or are bothersome): constipation dizziness drowsiness headache nausea, vomiting What may interact with this medicine? Do not take this medicine with any of the following medications: MAOIs like Carbex, Eldepryl, Marplan, Nardil, and Parnate This medicine may also interact with the following medications: alcohol or medicines that contain alcohol antihistamines benzodiazepines bupropion carbamazepine or oxcarbazepine clozapine cyclobenzaprine digoxin furazolidone linezolid medicines for depression, anxiety, or psychotic disturbances medicines for migraine headache like almotriptan, eletriptan, frovatriptan, naratriptan, rizatriptan, sumatriptan, zolmitriptan medicines for pain like pentazocine, buprenorphine, butorphanol, meperidine, nalbuphine, and propoxyphene medicines for sleep muscle relaxants naltrexone phenobarbital phenothiazines like perphenazine, thioridazine, chlorpromazine, mesoridazine, fluphenazine, prochlorperazine, promazine, and trifluoperazine procarbazine warfarin What if I miss a dose? If you miss a dose, take it as soon as you can. If it is almost time for your next dose, take only that dose. Do not take double or extra doses. Where should I keep my medicine? Keep out of the reach of children. Store at room temperature between 15 and 30 degrees C (59 and 86 degrees F). Keep container tightly closed. Throw away any unused medicine after the expiration date. What should I tell my health care provider before I take this medicine? They need to know if you have any of these conditions: brain tumor depression drug abuse or addiction head injury if you frequently drink alcohol containing drinks kidney disease or trouble passing urine liver disease lung disease, asthma, or breathing problems seizures or epilepsy suicidal thoughts, plans, or attempt; a previous suicide attempt by you or a family member an unusual or allergic reaction to tramadol, codeine, other medicines, foods, dyes, or preservatives or trying to get breast-feeding What should I watch for while using this medicine? Tell your doctor or health acute care physician if your pain does not go away, if it gets worse, or if you have new or a different type of pain. You may develop tolerance to the medicine. Tolerance means that you will need a higher dose of the medicine for pain relief. Tolerance is normal and is expected if you take this medicine for a long time. Do not suddenly stop taking your medicine because you may develop a severe reaction. Your body becomes used to the medicine. This does NOT mean you are addicted. Addiction is a behavior related to getting and using a drug for a non-medical reason. If you have pain, you have a medical reason to take pain medicine. Your doctor will tell you how much medicine to take. If your doctor wants you to stop the medicine, the dose will be slowly lowered over time to avoid any side effects. You may get drowsy or dizzy. Do not drive, use machinery, or do anything that needs mental alertness until you know how this medicine affects you. Do not stand or sit up quickly, especially if you are an older patient. This reduces the risk of dizzy or fainting spells. Alcohol can increase or decrease the effects of this medicine. Avoid alcoholic drinks. You may have constipation. Try to have a bowel movement at least every 2 to 3 days. If you do not have a bowel movement for 3 days, call your doctor or health acute care physician. Your mouth may get dry. Chewing sugarless gum or sucking hard candy, and drinking plenty of water may help. Contact your doctor if the problem does not go away or is severe. Lisinopril Oral tablet What is this medicine? LISINOPRIL (lyse IN oh pril) is an GWEN inhibitor. This medicine is used to treat high blood pressure and heart failure. It is also used to protect the heart immediately after a heart attack. How should I use this medicine? Take this medicine by mouth with a glass of water. Follow the directions on your prescription label. You may take this medicine with or without food. Take your medicine at regular intervals. Do not stop taking this medicine except on the advice of your doctor or health acute care physician. Talk to your wood and hardware outfitter regarding the use of this medicine in children. Special care may be needed. While this drug may be prescribed for children as young as 6 years of age for selected conditions, precautions do apply. What side effects may I notice from receiving this medicine? Side effects that you should report to your doctor or health acute care physician as soon as possible: abdominal pain with or without nausea or vomiting allergic reactions like skin rash or hives, swelling of the hands, feet, face, lips, throat, or tongue dark urine difficulty breathing dizzy, lightheaded or fainting spell fever or sore throat irregular heart beat, chest pain pain or difficulty passing urine redness, blistering, peeling or loosening of the skin, including inside the mouth unusually weak yellowing of the eyes or skin Side effects that usually do not require medical attention (report to your doctor or health acute care physician if they continue or are bothersome): change in taste cough decreased sexual function or desire headache sun sensitivity tiredness What may interact with this medicine? diuretics lithium NSAIDs, medicines for pain and inflammation, like ibuprofen or naproxen [id number] herbal supplements like hawthorn potassium salts or potassium supplements salt substitutes What if I miss a dose? If you miss a dose, take it as soon as you can. If it is almost time for your next dose, take only that dose. Do not take double or extra doses. Where should I keep my medicine? Keep out of the reach of children. Store at room temperature between 15 and 30 degrees C (59 and 86 degrees F). Protect from moisture. Keep container tightly closed. Throw away any unused medicine after the expiration date. What should I tell my health care provider before I take this medicine? They need to know if you have any of these conditions: diabetes heart or blood vessel disease immune system disease like lupus or scleroderma kidney disease low blood pressure previous swelling of the tongue, face, or lips with difficulty breathing, difficulty swallowing, hoarseness, or tightening of the throat an unusual or allergic reaction to lisinopril, other GWEN inhibitors, insect venom, foods, dyes, or preservatives or trying to get breast-feeding What should I watch for while using this medicine? Visit your doctor or health acute care physician for regular check ups. Check your blood pressure as directed. Ask your doctor what your blood pressure should be, and when you should contact him or her. Call your doctor or health acute care physician if you notice an irregular or fast heart beat. Women should inform their doctor if they wish to become or think they might be . There is a potential for serious side effects to an unborn child. Talk to your health acute care physician or pharmacist for more information. Check with your doctor or health acute care physician if you get an attack of severe diarrhea, nausea and vomiting, or if you sweat a lot. The loss of too much body fluid can make it dangerous for you to take this medicine. You may get drowsy or dizzy. Do not drive, use machinery, or do anything that needs mental alertness until you know how this drug affects you. Do not stand or sit up quickly, especially if you are an older patient. This reduces the risk of dizzy or fainting spells. Alcohol can make you more drowsy and dizzy. Avoid alcoholic drinks. Avoid salt substitutes unless you are told otherwise by your doctor or health acute care physician. Do not treat yourself for coughs, colds, or pain while you are taking this medicine without asking your doctor or health acute care physician for advice. Some ingredients may increase your blood pressure. You have been given the following additional information: Bladder Infection, Female (Adult) Hypertension, Established, Out Of Control Ondansetron Oral disintegrating tablet Ciprofloxacin Hydrochloride Oral tablet Tramadol Hydrochloride Oral tablet Lisinopril Oral tablet No driving or operating machinery while taking medication. (Electronically signed by Mathieu Gilman MD 09/20/2016 10:01)
--- NOTE | 2016-09-20 18:57 | ED MAR SUMMARY ---
..... Medication Administration Record [facility] [address] [place] [id number] Patient: MARY SCHMIDT Visit ID: [id number] 50y, F Weight: 74.8 kg Height/Length: 62 in BMI: 30.2 ALLERGIES: No Known Drug Allergy
--- NOTE | 2016-09-20 18:57 | ED MED RECONCILIATION SUMMARY ---
Patient: MARY SCHMIDT Medication Reconciliation Report [facility] VisitID: [id number] [address] [place] [address] 50y, F Registration Date/Time: 09/20/2016 Weight: 74.8 kg Height/Length: 62 in. BMI: 30.2 ALLERGIES: No Known Drug Allergy The patient's Home Medications are listed below: CONTINUE TAKING THE FOLLOWING MEDICATIONS: Adderall Oral Antidepressant The source(s) of the original Home Medication information: patient The following Medications were given to the patient in the Emergency Department: None. The following Medications were prescribed to the patient: Zofran 4 mg: Take 1 orally every six hours as needed for nausea/vomiting. Dispense ten (10). No refills. Substitution is permissible. -- Mathieu Gilman MD Cipro 500 mg: take 1 tab orally every 12 hours for 10 days. Dispense twenty (20). No refills. Substitution is permissible. -- Mathieu Gilman MD Ultram 50 mg: take 1-2 orally every 6 hours as needed for pain. Dispense fifteen (15). No refills. Substitution is permissible. -- Mathieu Gilman MD Lisinopril 10 mg: Take 1 orally every 24 hours. Dispense fifteen (15). No refills. -- Mathieu Gilman MD
== END 2016-09-20 10:10 | disposition home or self-care (01) ==
LOC: ED SRH 08:37
DX: N10 Acute pyelonephritis (principal); N39.0 Urinary tract infection, site not specified; I10 Essential (primary) hypertension; Z79.899 Other long term (current) drug therapy; Z72.0 Tobacco use
CPT/HCPCS: 90004; 90469

== ENCOUNTER 2016-10-05 08:01 | Outpatient (CLI) | payer OTHER | END 2016-10-05 23:00 | LOC: LAB SRH 08:01 | DX: F33.1 Major depressive disorder, recurrent, moderate (principal) | CPT/HCPCS: 90074; 90100; 92715; 95059 ==

== ENCOUNTER 2016-10-07 18:32 | Emergency (ER) | payer OTHER ==
--- NOTE | 2016-10-07 18:57 | ED CLINICAL REPORT ---
Clinical Report - Physicians/Mid Levels [facility] [address] [place] [place] [address] 10/07/2016 18:33 Patient: MARY SCHMIDT Time Seen: 1845. Arrived- By private vehicle. Historian- patient. 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 Patient is experiencing moderate pain. Patient denies injury to the head or neck. (possible twisting mechanism while outside over the last 2 days. Reports pain to the left knee at the time, now worsening with each movement, stairs. Denies prior major injuries to t Denies any direct trauma. Denies history of DVT or PE. Pain improves with rest.). REVIEW OF SYSTEMS The patient complains of pain on weight bearing. All systems otherwise negative, except as recorded above. PAST HISTORY The patient has not had a prior injury to the same area. Problems: UTI - Urinary Tract Infection. Pyelonephritis. Depression. Sprain. Back Pain. Contusion. Tetanus Status. Dental Caries. Immunizations. Hypertension. Acute Pain. Dental Pain. Pharyngitis. LNMP - Last Normal Menstrual Period. Additional Surgeries: Tubal Ligation. Medications: None (Pt states she stopped taking her meds). Allergies: No Known Drug Allergy. SOCIAL HISTORY Current every day smoker. Alcohol use. Patient is a recovering alcoholic. No drug use. ADDITIONAL NOTES The nursing notes have been reviewed. PHYSICAL EXAM Vital Signs: 10/07/2016 18:36 BP: 143/91. HR: 81. RR: 18. O2 saturation: 100%. Temp: 98.6 F. Pain level now: 8/10. Appearance: Alert. No acute distress. Head: Head atraumatic. Neck: Normal inspection. CVS: Normal heart rate and rhythm. Heart sounds normal. Respiratory: No respiratory distress. Breath sounds normal. Skin: Skin warm. Normal skin color. Extremities: No soft-tissue tenderness in the lower extremities. No signs of infection involving the lower extremities. Left thigh. No tenderness or swelling. Left knee: tenderness and swelling. Joint effusion present. Ligamentous laxity. No ecchymosis or deformity. No limitation in ROM. Left leg. No tenderness or swelling. Ankle stable. Gait: Limping gait. Neuro, Vascular and Tendons: Vascular status intact. Capillary refill not prolonged. Motor intact. Tendon function intact. No weakness. Neuro: Oriented X 3. PROGRESS AND PROCEDURES Course of Care: patient is ambulatory. No direct trauma or injury. Suspicion for acute fracture is low. Patient with symptoms worsened by movement. Patient otherwise stable. No signs of infectious process. Fair range of motion. No hip or ankle pain. Patient is stable. Symptoms better. Patient/family counseled. Disposition: Discharged. Condition: good. CLINICAL IMPRESSION Sprain of the medial collateral ligament of the left knee. INSTRUCTIONS Apply ice. Elevate affected areas above chest level. You may walk and bear weight as tolerated. Prescription Medications: Ibuprofen 800 mg tablets: take 1 tablet orally every 8 hours for 5 days, as needed for pain. Dispense fifteen (15). No refill. (with food) Follow-up: Follow up with a specialist in seven days. [facility] [address] [facility] [id number] (Electronically signed by Kaley Melendez P.A.-C 10/07/2016 20:09)
--- NOTE | 2016-10-07 18:57 | ED NURSING NOTES ---
Clinical Report - Nurses [facility] [address] [place] [address] 10/07/2016 18:33 [id number] Triage time 18:36 Oct 07 2016. Chief Complaint: Location of symptoms- left knee. 18:38 10/07/16. 18:37 10/07/16. Alert. No acute distress. JOSE E COMA SCORE: [place] Coma Scale: 15- eyes open spontaneously (4); best verbal response- oriented x 4 (5); best motor response- obeys commands (6). --18:40 Derrick Griffin R.N. 18:36 10/07/16. BP: 143/91. HR: 81. RR: 18. O2 saturation: 100% on room air. Temp: 98.6 F (oral). Pain level now: 8. --18:40 Derrick Griffin R.N. Acuity: LEVEL 4. --18:41 Derrick Griffin R.N. Weight: 72.5 kg stated. Height/Length: 62 inches Per Patient. BMI: 29.3. --18:36 Derrick Griffin R.N. Medications None (Pt states she stopped taking her meds). --18:39 Derrick Griffin R.N. The following entry was struck and corrected by Derrick Griffin R.N., 18:40 (10/07/16) Reason for correction - other(correction). <<STRICKEN ENTRY-- None. --18:39 Derrick Griffin R.N. --END STRIKE>>. Medication/allergy information source: the patient. --18:40 Derrick Griffin R.N. Allergies No Known Drug Allergy. --18:39 Derrick Griffin R.N. History Arrived by private vehicle. Historian: patient. Unaccompanied. Primary physician ([facility]). 18:37 10/07/16. An injury may have occurred. This occurred (2 days ago). No trouble walking. 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 PAST MEDICAL HX: Tetanus status: up-to-date. Immunizations: up-to-date. SOCIAL HX: Current every day light tobacco smoker (cigarette)- less than 1/2 a pack per day. Alcohol use. Patient is a recovering alcoholic. History of drug use. No infectious disease exposure. ABUSE ASSESSMENT: No report of abuse. FALL RISK ASSESSMENT: Fall risk assessment completed. No fall risk identified. NUTRITIONAL RISK ASSESSMENT: The nutritional risk assessment revealed no deficiencies. FUNCTIONAL ASSESSMENT: Functional assessment: no impairments noted. LEARNING NEEDS ASSESSMENT: The learning needs assessment revealed no barriers. SKIN INTEGRITY ASSESSMENT: Skin integrity risk assessment completed. No skin integrity risk identified. --18:40 Derrick Griffin R.N. PAST MEDICAL HX: Last normal menstrual period- "I have not had one for a few years". --18:42 Derrick Griffin R.N. PROBLEMS: UTI - Urinary Tract Infection. Pyelonephritis. Depression. Sprain. Back Pain. Contusion. Tetanus Status. Dental Caries. Immunizations. Hypertension. Acute Pain. Dental Pain. Pharyngitis. LNMP - Last Normal Menstrual Period. --18:39 Derrick Griffin R.N. ADDITIONAL SURGERIES: Tubal Ligation. --18:39 Derrick Griffin R.N. Assessment 18:37 10/07/16. --18:40 Derrick Griffin R.N. Interventions 18:36 10/07/16. 18:37 10/07/16. ID and allergy band on patient. To treatment room. --18:40 Derrick Griffin R.N. PHYSICAL ASSESSMENT 18:40 10/07/16. Ambulatory to room. GENERAL / NEURO / PSYCH: Oriented X 4. Alert. Appears in no acute distress. EXTREMITIES: Extremity pulses are within normal limits. Neuro-vascular status intact to the extremity. Left knee: tenderness. SKIN: Skin is warm and dry. --18:40 Derrick Griffin R.N. NURSING PROGRESS NOTES 18:40 10/07/16. The plan of care for this patient has been created. Patient gowned. Reassurance given. Two patient identifiers checked. Call light placed in reach. Side rails up x 2. Bed placed in lowest position. Brakes of bed on. --18:40 Derrick Griffin R.N. 18:41 10/07/16. Patient ready for evaluation- chart flagged and notification provided. --18:41 Derrick Griffin R.N. 3 inch marquita bandage applied to right knee by tech; distal pulses intact, sensation intact and motor function within normal limits. --18:56 Antonio Gage, GENE Tech1. DISPOSITION / DISCHARGE 19:19 10/07/16. Condition at departure: stable. The goals identified in the patient's plan of care were met. No learning barriers present. Discharge instructions provided and reviewed with the patient. Reviewed medication(s) side effects, precautions, dosing and course information. Prescription(s) given to the patient (Take with food). Reviewed need for increased fluid intake. Patient verbalized understanding. Written instructions provided in Tajik. ( Ice for twenty minutes at a time. Elevate the extremity. Follow up with Orthopedic clinic as needed. Contact information provided. Patient questions answered and the patient verbalize understanding of discharge instructions.). The patient was discharged by the physician care management assistant. She was discharged home and accompanied by healthcare architect. She left the Emergency Department ambulatory and via private vehicle. Security Compliance Specialist driving. FALL RISK ASSESSMENT: Fall risk assessment completed. No fall risk identified. --19:19 Rose Lynn 19:18 10/07/16. BP: deferred. HR: deferred. RR: deferred. O2 saturation: deferred. Temp: deferred. --19:19 Rose Lynn. Locked/Released at 10/16/2016 22:17 by Rose Lynn,
--- NOTE | 2016-10-07 18:57 | ED CLINICAL REPORT ---
Clinical Report - Physicians/Mid Levels [facility] [address] [place] [place] [address] 10/07/2016 18:33 Patient: MARY SCHMIDT Time Seen: 1845. Arrived- By private vehicle. Historian- patient. 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 Patient is experiencing moderate pain. Patient denies injury to the head or neck. (possible twisting mechanism while outside over the last 2 days. Reports pain to the left knee at the time, now worsening with each movement, stairs. Denies prior major injuries to t Denies any direct trauma. Denies history of DVT or PE. Pain improves with rest.). REVIEW OF SYSTEMS The patient complains of pain on weight bearing. All systems otherwise negative, except as recorded above. PAST HISTORY The patient has not had a prior injury to the same area. Problems: UTI - Urinary Tract Infection. Pyelonephritis. Depression. Sprain. Back Pain. Contusion. Tetanus Status. Dental Caries. Immunizations. Hypertension. Acute Pain. Dental Pain. Pharyngitis. LNMP - Last Normal Menstrual Period. Additional Surgeries: Tubal Ligation. Medications: None (Pt states she stopped taking her meds). Allergies: No Known Drug Allergy. SOCIAL HISTORY Current every day smoker. Alcohol use. Patient is a recovering alcoholic. No drug use. ADDITIONAL NOTES The nursing notes have been reviewed. PHYSICAL EXAM Vital Signs: 10/07/2016 18:36 BP: 143/91. HR: 81. RR: 18. O2 saturation: 100%. Temp: 98.6 F. Pain level now: 8/10. Appearance: Alert. No acute distress. Head: Head atraumatic. Neck: Normal inspection. CVS: Normal heart rate and rhythm. Heart sounds normal. Respiratory: No respiratory distress. Breath sounds normal. Skin: Skin warm. Normal skin color. Extremities: No soft-tissue tenderness in the lower extremities. No signs of infection involving the lower extremities. Left thigh. No tenderness or swelling. Left knee: tenderness and swelling. Joint effusion present. Ligamentous laxity. No ecchymosis or deformity. No limitation in ROM. Left leg. No tenderness or swelling. Ankle stable. Gait: Limping gait. Neuro, Vascular and Tendons: Vascular status intact. Capillary refill not prolonged. Motor intact. Tendon function intact. No weakness. Neuro: Oriented X 3. PROGRESS AND PROCEDURES Course of Care: patient is ambulatory. No direct trauma or injury. Suspicion for acute fracture is low. Patient with symptoms worsened by movement. Patient otherwise stable. No signs of infectious process. Fair range of motion. No hip or ankle pain. Patient is stable. Symptoms better. Patient/family counseled. Disposition: Discharged. Condition: good. CLINICAL IMPRESSION Sprain of the medial collateral ligament of the left knee. INSTRUCTIONS Apply ice. Elevate affected areas above chest level. You may walk and bear weight as tolerated. Prescription Medications: Ibuprofen 800 mg tablets: take 1 tablet orally every 8 hours for 5 days, as needed for pain. Dispense fifteen (15). No refill. (with food) Follow-up: Follow up with a specialist in seven days. [facility] [address] [facility] [address] (Electronically signed by Kaley Melendez P.A.-C 10/07/2016 20:09)
--- NOTE | 2016-10-07 18:57 | ED ORDER SUMMARY ---
..... Patient: MARY SCHMIDT OrderSheet [facility] VisitID: [id number] [place] [address] 51y, F Registration Date/Time: 10/07/2016 ORDER SHEET Weight: 72.5 kg (stated) Allergies: No Known Drug Allergy GENERAL ORDERS: Knee 4V Left Urgent (18:41 10/07/2016 Igor Anaya per protocol) (Ack 18:43 Tyrone) (Cancelled: Other18:56 Ermalegonzales P.A.-C) Yoav Wrap (19:10 10/07/2016 EKoroleva P.A.-C) (19:14 Berenice) MEDICATION ORDERS: IV FLUIDS: ORDER SHEET NOTES: [Electronically signed by Kaley Melendez P.A.-C (20:09 10/07/2016)] [Electronically signed by Rose Lynn (22:17 10/16/2016)] [Electronically locked/signed by Rose Lynn (22:17 10/16/2016)]
--- NOTE | 2016-10-07 18:57 | ED NURSING NOTES ---
Clinical Report - Nurses [facility] [address] [place] [place] [address] 10/07/2016 18:33 [id number] Triage time 18:36 Oct 07 2016. Chief Complaint: Location of symptoms- left knee. 18:38 10/07/16. 18:37 10/07/16. Alert. No acute distress. JOSE E COMA SCORE: [place] Coma Scale: 15- eyes open spontaneously (4); best verbal response- oriented x 4 (5); best motor response- obeys commands (6). --18:40 Derrick Griffin R.N. 18:36 10/07/16. BP: 143/91. HR: 81. RR: 18. O2 saturation: 100% on room air. Temp: 98.6 F (oral). Pain level now: 8. --18:40 Derrick Griffin R.N. Acuity: LEVEL 4. --18:41 Derrick Griffin R.N. Weight: 72.5 kg stated. Height/Length: 62 inches Per Patient. BMI: 29.3. --18:36 Derrick Griffin R.N. Medications None (Pt states she stopped taking her meds). --18:39 Derrick Grfifin R.N. The following entry was struck and corrected by Derrick Griffin R.N., 18:40 (10/07/16) Reason for correction - other(correction). <<STRICKEN ENTRY-- None. --18:39 Derrick Griffin R.N. --END STRIKE>>. Medication/allergy information source: the patient. --18:40 Derrick Griffin R.N. Allergies No Known Drug Allergy. --18:39 Derrick Griffin R.N. History Arrived by private vehicle. Historian: patient. Unaccompanied. Primary physician ([facility]). 18:37 10/07/16. An injury may have occurred. This occurred (2 days ago). No trouble walking. 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 PAST MEDICAL HX: Tetanus status: up-to-date. Immunizations: up-to-date. SOCIAL HX: Current every day light tobacco smoker (cigarette)- less than 1/2 a pack per day. Alcohol use. Patient is a recovering alcoholic. History of drug use. No infectious disease exposure. ABUSE ASSESSMENT: No report of abuse. FALL RISK ASSESSMENT: Fall risk assessment completed. No fall risk identified. NUTRITIONAL RISK ASSESSMENT: The nutritional risk assessment revealed no deficiencies. FUNCTIONAL ASSESSMENT: Functional assessment: no impairments noted. LEARNING NEEDS ASSESSMENT: The learning needs assessment revealed no barriers. SKIN INTEGRITY ASSESSMENT: Skin integrity risk assessment completed. No skin integrity risk identified. --18:40 Derrick Griffin R.N. PAST MEDICAL HX: Last normal menstrual period- "I have not had one for a few years". --18:42 Derrick Griffin R.N. PROBLEMS: UTI - Urinary Tract Infection. Pyelonephritis. Depression. Sprain. Back Pain. Contusion. Tetanus Status. Dental Caries. Immunizations. Hypertension. Acute Pain. Dental Pain. Pharyngitis. LNMP - Last Normal Menstrual Period. --18:39 Derrick Griffin R.N. ADDITIONAL SURGERIES: Tubal Ligation. --18:39 Derrick Griffin R.N. Assessment 18:37 10/07/16. --18:40 Derrick Griffin R.N. Interventions 18:36 10/07/16. 18:37 10/07/16. ID and allergy band on patient. To treatment room. --18:40 Derrick Griffin R.N. PHYSICAL ASSESSMENT 18:40 10/07/16. Ambulatory to room. GENERAL / NEURO / PSYCH: Oriented X 4. Alert. Appears in no acute distress. EXTREMITIES: Extremity pulses are within normal limits. Neuro-vascular status intact to the extremity. Left knee: tenderness. SKIN: Skin is warm and dry. --18:40 Derrick Griffin R.N. NURSING PROGRESS NOTES 18:40 10/07/16. The plan of care for this patient has been created. Patient gowned. Reassurance given. Two patient identifiers checked. Call light placed in reach. Side rails up x 2. Bed placed in lowest position. Brakes of bed on. --18:40 Derrick Griffin R.N. 18:41 10/07/16. Patient ready for evaluation- chart flagged and notification provided. --18:41 Derrick Griffin R.N. 3 inch marquita bandage applied to right knee by tech; distal pulses intact, sensation intact and motor function within normal limits. --18:56 Antonio Gage, GENE Tech1. DISPOSITION / DISCHARGE 19:19 10/07/16. Condition at departure: stable. The goals identified in the patient's plan of care were met. No learning barriers present. Discharge instructions provided and reviewed with the patient. Reviewed medication(s) side effects, precautions, dosing and course information. Prescription(s) given to the patient (Take with food). Reviewed need for increased fluid intake. Patient verbalized understanding. Written instructions provided in [place]. ( Ice for twenty minutes at a time. Elevate the extremity. Follow up with Orthopedic clinic as needed. Contact information provided. Patient questions answered and the patient verbalize understanding of discharge instructions.). The patient was discharged by the physician grooming assistant. She was discharged home and accompanied by automatic typewriter inspector. She left the Emergency Department ambulatory and via private vehicle. Workforce Specialist driving. FALL RISK ASSESSMENT: Fall risk assessment completed. No fall risk identified. --19:19 Rose Lynn 19:18 10/07/16. BP: deferred. HR: deferred. RR: deferred. O2 saturation: deferred. Temp: deferred. --19:19 Rose Lynn. Locked/Released at 10/16/2016 22:17 by Rose Lynn,
--- NOTE | 2016-10-07 18:57 | ED ORDER SUMMARY ---
..... Patient: MARY SCHMIDT OrderSheet [facility] VisitID: [id number] [place] [address] 51y, F Registration Date/Time: 10/07/2016 ORDER SHEET Weight: 72.5 kg (stated) Allergies: No Known Drug Allergy GENERAL ORDERS: Knee 4V Left Urgent (18:41 10/07/2016 Igor Anaya per protocol) (Ack 18:43 Tyrone) (Cancelled: Other18:56 Ermalegonzales P.A.-C) Yoav Wrap (19:10 10/07/2016 EKoroleva P.A.-C) (19:14 Berenice) MEDICATION ORDERS: IV FLUIDS: ORDER SHEET NOTES: [Electronically signed by Kaley Melendez P.A.-C (20:09 10/07/2016)] [Electronically signed by Rose Lynn (22:17 10/16/2016)] [Electronically locked/signed by Rose Lynn (22:17 10/16/2016)]
--- NOTE | 2016-10-16 22:17 | ED DISCHARGE INSTRUCTIONS ---
Patient: MARY SCHMIDT General Instructions [facility] VisitID: [id number] [address] [place] [address] 51y, F Registration Date/Time: 10/07/2016 Sprain of the medial collateral ligament of the left knee. INSTRUCTIONS Apply ice. Elevate affected areas above chest level. You may walk and bear weight as tolerated. Prescription Medications: Ibuprofen 800 mg tablets: take 1 tablet orally every 8 hours for 5 days, as needed for pain. Dispense fifteen (15). No refill. (with food) Follow-up: Follow up with a specialist in seven days. Follow-up with: [facility], , [address] [place], [id number] ADDITIONAL INFORMATION Sprain, Knee A sprain is an injury to the ligaments or capsule that holds a joint together. There are no broken bones. Most sprains take three to six weeks to heal. If the ligament is completely torn (severe sprain), it can take months to recover from. Most knee sprains are treated with a splint, knee immobilizer or elastic wrap for support. Severe sprains may require surgery. Home care The following guidelines will help you care for your injury at home: Stay off the injured leg as much as possible until you can walk on it without pain. If you have a lot of pain with walking, crutches or a walker may be prescribed. (These can be rented or purchased at many pharmacies and surgical or orthopedic supply stores). Follow your doctor's advice regarding when to begin bearing weight on that leg. Keep your leg elevated to reduce pain and swelling. When sleeping, place a pillow under the injured leg. When sitting, support the injured leg so it is level with your waist. This is very important during the first 48 hours. Apply an ice pack (ice cubes in a plastic bag, wrapped in a towel) over the injured area for 20 minutes every 12 hours the first day. You can place the ice pack directly over the splint. If a Velcro knee immobilizer was applied, you can open this to apply the ice pack directly to the knee. Continue with ice packs 34 times a day for the next two days, then as needed for the relief of pain and swelling. You may use acetaminophen or ibuprofen to control pain, unless another pain medicine was prescribed. If you have chronic liver or kidney disease or ever had a stomach ulcer or GI bleeding, talk with your doctor before using these medicines. If you were given a splint, keep it completely dry at all times. Bathe with your splint out of the water, protected with a large plastic bag, rubber-banded at the top end. If a fiberglass splint gets wet, you can dry it with a hair-dryer. If you have a Velcro knee immobilizer, you can remove this to bathe, unless told otherwise. Follow-up care Follow up with your doctor as advised. Any X-rays you had today dont show any broken bones, breaks, or fractures. Sometimes fractures dont show up on the first X-ray. Bruises and sprains can sometimes hurt as much as a fracture. These injuries can take time to heal completely. If your symptoms dont improve or they get worse, talk with your doctor. You may need a repeat X-ray. When to seek medical care Get prompt medical attention if any of the following occur: The plaster cast or splint becomes wet or soft The fiberglass cast or splint remains wet for more than 24 hours Pain or swelling increases Toes become cold, blue, numb or tingly Knee Sprain, Collateral Ligaments The knee is a hinge joint supported by four strong ligaments. The two ligaments inside the knee (cruciate ligaments) protect this joint from excess forward and backward movement. The ligaments on the outside of the joint (collateral ligaments) prevent uayb-uz-wqlt motion. The medial collateral ligament (MCL) is located on the inner side of the joint; and the lateral collateral ligament (LCL) is on the outer side of the joint. You have sprained one or both collateral ligaments. A sprain is a tearing of a ligament. The tear may be partial or complete. Diagnosis is made by physical exam. In the case of an acute injury, the knee may be too swollen or painful to examine fully. A more accurate exam can be performed after the initial swelling goes down. Symptoms of a knee sprain include immediate knee swelling, pain, and difficulty walking.Initial treatment includes resting the joint, splinting to reduce movement of the joint, use of ice to reduce swelling and pain. Non-steroidal anti-inflammatory drugs (NSAIDs), such as ibuprofen, may be prescribed. Most sprains will heal in one to four weeks.A severe injury can take three to four months to heal and requires rehabilitation exercises. Surgery is usually not required for sprains involving only the collateral ligaments. Home care The following guidelines will help you care for your injury at home: Stay off the injured leg as much as possible until you can walk on it without pain. If you have a lot of pain while walking, crutches, or a walker may be prescribed. (These can be rented or purchased at many pharmacies and surgical or orthopedic supply stores.) Follow your doctor's advice regarding when to begin bearing weight on that leg. If you were given a qkjq-pri-ectg closure knee brace, you can remove this to bathe, but leave it in place when walking, sitting, or lying down (unless told otherwise). Apply an ice pack (ice cubes in a plastic bag, wrapped in a towel) over the injured area for 20 minutes every 12 hours the first day. If a qzsy-rfr-tilq closure knee brace was applied, you can open this to apply the ice pack directly to the knee. Continue with ice packs 34 times a day for the next two days, then as needed for the relief of pain and swelling. You may use acetaminophen or ibuprofen to control pain, unless another pain medicine was prescribed. If you have chronic liver or kidney disease or ever had a stomach ulcer or GI bleeding, talk with your doctor before using these medicines. Follow-up care Follow up with the referral doctor, or as advised by our staff. Any X-rays you had today dont show any broken bones, breaks, or fractures. Sometimes fractures dont show up on the first X-ray. Bruises and sprains can sometimes hurt as much as a fracture. These injuries can take time to heal completely. If your symptoms dont improve or they get worse, talk with your doctor. You may need a repeat X-ray. When to seek medical care Get prompt medical attention if any of the following occur: Pain or swelling worsens Shortness of breath or chest pain Swelling or redness or pain of the calf or thigh You have been given the following additional information: Knee Sprain Knee Sprain: Collateral Ligaments You may walk and bear weight as tolerated. (Electronically signed by Kaley Melendez P.A.-C 10/07/2016 20:09)
--- NOTE | 2016-10-16 22:17 | ED MED RECONCILIATION SUMMARY ---
Patient: MARY SCHMIDT Medication Reconciliation Report [facility] VisitID: [id number] [place] [address] 51y, F Registration Date/Time: 10/07/2016 Weight: 72.5 kg Height/Length: 62 in. BMI: 29.3 ALLERGIES: No Known Drug Allergy The patient's Home Medications are listed below: NONE. The source(s) of the original Home Medication information: patient The following Medications were given to the patient in the Emergency Department: None. The following Medications were prescribed to the patient: Ibuprofen 800 mg tablets: take 1 tablet orally every 8 hours for 5 days, as needed for pain. Dispense fifteen (15). No refill.(with food) -- Kaley Melendez P.A.-C
--- NOTE | 2016-10-16 22:17 | ED MAR SUMMARY ---
..... Medication Administration Record [facility] [address] [place], [place] [id number] Patient: MARY SCHMIDT Visit ID: [id number] 51y, F Weight: 72.5 kg Height/Length: 62 in BMI: 29.3 ALLERGIES: No Known Drug Allergy
--- NOTE | 2016-10-16 22:17 | ED MAR SUMMARY ---
..... Medication Administration Record [facility] [address] [place], [place] [id number] Patient: MARY SCHMIDT Visit ID: [id number] 51y, F Weight: 72.5 kg Height/Length: 62 in BMI: 29.3 ALLERGIES: No Known Drug Allergy
--- NOTE | 2016-10-16 22:17 | ED DISCHARGE INSTRUCTIONS ---
Patient: MARY SCHMIDT General Instructions [facility] VisitID: [id number] [address] [place] [address] 51y, F Registration Date/Time: 10/07/2016 Sprain of the medial collateral ligament of the left knee. INSTRUCTIONS Apply ice. Elevate affected areas above chest level. You may walk and bear weight as tolerated. Prescription Medications: Ibuprofen 800 mg tablets: take 1 tablet orally every 8 hours for 5 days, as needed for pain. Dispense fifteen (15). No refill. (with food) Follow-up: Follow up with a specialist in seven days. Follow-up with: [facility], , [address] [place], [address] ADDITIONAL INFORMATION Sprain, Knee A sprain is an injury to the ligaments or capsule that holds a joint together. There are no broken bones. Most sprains take three to six weeks to heal. If the ligament is completely torn (severe sprain), it can take months to recover from. Most knee sprains are treated with a splint, knee immobilizer or elastic wrap for support. Severe sprains may require surgery. Home care The following guidelines will help you care for your injury at home: Stay off the injured leg as much as possible until you can walk on it without pain. If you have a lot of pain with walking, crutches or a walker may be prescribed. (These can be rented or purchased at many pharmacies and surgical or orthopedic supply stores). Follow your doctor's advice regarding when to begin bearing weight on that leg. Keep your leg elevated to reduce pain and swelling. When sleeping, place a pillow under the injured leg. When sitting, support the injured leg so it is level with your waist. This is very important during the first 48 hours. Apply an ice pack (ice cubes in a plastic bag, wrapped in a towel) over the injured area for 20 minutes every 12 hours the first day. You can place the ice pack directly over the splint. If a Velcro knee immobilizer was applied, you can open this to apply the ice pack directly to the knee. Continue with ice packs 34 times a day for the next two days, then as needed for the relief of pain and swelling. You may use acetaminophen or ibuprofen to control pain, unless another pain medicine was prescribed. If you have chronic liver or kidney disease or ever had a stomach ulcer or GI bleeding, talk with your doctor before using these medicines. If you were given a splint, keep it completely dry at all times. Bathe with your splint out of the water, protected with a large plastic bag, rubber-banded at the top end. If a fiberglass splint gets wet, you can dry it with a hair-dryer. If you have a Velcro knee immobilizer, you can remove this to bathe, unless told otherwise. Follow-up care Follow up with your doctor as advised. Any X-rays you had today dont show any broken bones, breaks, or fractures. Sometimes fractures dont show up on the first X-ray. Bruises and sprains can sometimes hurt as much as a fracture. These injuries can take time to heal completely. If your symptoms dont improve or they get worse, talk with your doctor. You may need a repeat X-ray. When to seek medical care Get prompt medical attention if any of the following occur: The plaster cast or splint becomes wet or soft The fiberglass cast or splint remains wet for more than 24 hours Pain or swelling increases Toes become cold, blue, numb or tingly Knee Sprain, Collateral Ligaments The knee is a hinge joint supported by four strong ligaments. The two ligaments inside the knee (cruciate ligaments) protect this joint from excess forward and backward movement. The ligaments on the outside of the joint (collateral ligaments) prevent vpsm-yf-axnp motion. The medial collateral ligament (MCL) is located on the inner side of the joint; and the lateral collateral ligament (LCL) is on the outer side of the joint. You have sprained one or both collateral ligaments. A sprain is a tearing of a ligament. The tear may be partial or complete. Diagnosis is made by physical exam. In the case of an acute injury, the knee may be too swollen or painful to examine fully. A more accurate exam can be performed after the initial swelling goes down. Symptoms of a knee sprain include immediate knee swelling, pain, and difficulty walking.Initial treatment includes resting the joint, splinting to reduce movement of the joint, use of ice to reduce swelling and pain. Non-steroidal anti-inflammatory drugs (NSAIDs), such as ibuprofen, may be prescribed. Most sprains will heal in one to four weeks.A severe injury can take three to four months to heal and requires rehabilitation exercises. Surgery is usually not required for sprains involving only the collateral ligaments. Home care The following guidelines will help you care for your injury at home: Stay off the injured leg as much as possible until you can walk on it without pain. If you have a lot of pain while walking, crutches, or a walker may be prescribed. (These can be rented or purchased at many pharmacies and surgical or orthopedic supply stores.) Follow your doctor's advice regarding when to begin bearing weight on that leg. If you were given a vmqg-wto-cder closure knee brace, you can remove this to bathe, but leave it in place when walking, sitting, or lying down (unless told otherwise). Apply an ice pack (ice cubes in a plastic bag, wrapped in a towel) over the injured area for 20 minutes every 12 hours the first day. If a cgoy-pvg-vups closure knee brace was applied, you can open this to apply the ice pack directly to the knee. Continue with ice packs 34 times a day for the next two days, then as needed for the relief of pain and swelling. You may use acetaminophen or ibuprofen to control pain, unless another pain medicine was prescribed. If you have chronic liver or kidney disease or ever had a stomach ulcer or GI bleeding, talk with your doctor before using these medicines. Follow-up care Follow up with the referral doctor, or as advised by our staff. Any X-rays you had today dont show any broken bones, breaks, or fractures. Sometimes fractures dont show up on the first X-ray. Bruises and sprains can sometimes hurt as much as a fracture. These injuries can take time to heal completely. If your symptoms dont improve or they get worse, talk with your doctor. You may need a repeat X-ray. When to seek medical care Get prompt medical attention if any of the following occur: Pain or swelling worsens Shortness of breath or chest pain Swelling or redness or pain of the calf or thigh You have been given the following additional information: Knee Sprain Knee Sprain: Collateral Ligaments You may walk and bear weight as tolerated. (Electronically signed by Kaley Melendez P.A.-C 10/07/2016 20:09)
--- NOTE | 2016-10-16 22:17 | ED MED RECONCILIATION SUMMARY ---
Patient: MARY SCHMIDT Medication Reconciliation Report [facility] VisitID: [id number] [place] [address] 51y, F Registration Date/Time: 10/07/2016 Weight: 72.5 kg Height/Length: 62 in. BMI: 29.3 ALLERGIES: No Known Drug Allergy The patient's Home Medications are listed below: NONE. The source(s) of the original Home Medication information: patient The following Medications were given to the patient in the Emergency Department: None. The following Medications were prescribed to the patient: Ibuprofen 800 mg tablets: take 1 tablet orally every 8 hours for 5 days, as needed for pain. Dispense fifteen (15). No refill.(with food) -- Kaley Melendez P.A.-C
== END 2016-10-07 19:20 | disposition home or self-care (01) ==
LOC: ED SRH 18:32
DX: S83.412A Sprain of medial collateral ligament of left knee, initial encounter (principal); X50.0XXA Overexertion from strenuous movement or load, initial encounter